=== PATIENT | male | born 1980 | race Hispanic/Latino ===

== ENCOUNTER 2018-01-02 08:31 | Observation (INO) | payer BC ==
[2018-01-02] MEDS ORDERED: NA CHLORIDE 0.9% 1,000 ML ONE ×2 (09:02→12:36)
[2018-01-02] MEDS ORDERED: MORPHINE 4 MG/ML SYR ONE (09:02)
[2018-01-02] MEDS ORDERED: ONDANSETRON 4 MG/2 ML VIAL ONE ×3 (09:02→15:13)
[2018-01-02] MEDS ORDERED: FAMOTIDINE 20 MG/2 ML VIAL IV ONE (09:03)
[2018-01-02 09:11] LABS: Absolute Lymphocytes (CBC) 2.3 K/uL (0.7-4.9); Absolute Monocytes 0.4 K/uL (0.1-1.3); Absolute Neutrophil 4.1 K/uL (1.8-8.0); Basophils % 4.1 % (0-1.3); Eosinophils % 1.6 % (0-4.4); Lymphocytes % 32.1 % (15.3-44.8); MCH 29.2 pg (27.0-35.0); MCV 85.3 fL (80-100); MPV 8.9 fL (7.6-11.3); RBC Red Blood Cell Count 5.51 M/uL (4.33-5.43)
[2018-01-02 09:19] LABS: Bicarbonate 28 mEq/L (21-31); Glucose Level 120 mg/dL (65-120); Lipase 24 U/L (22-51); Potassium 3.5 mEq/L (3.6-5.0); Sodium Level 136 mEq/L (135-145)
[2018-01-02 09:26] LABS: ALT/SGPT 34 IU/L (10-60); AST/SGOT 23 IU/L (10-42); Albumin 4.4 g/dL (3.2-5.5); Alkaline Phosphatase 84 IU/L (42-121); Amylase Level 89 U/L (28-100); BUN Blood Urea Nitrogen 18 mg/dL (6-20); Bilirubin Direct 0.1 mg/dL (0-0.2); Bilirubin Total 0.6 mg/dL (0.3-1.2); Protein, Total 7.9 g/dL (6.0-8.3)
--- NOTE | 2018-01-02 09:34 | RAD REPORT ---
EXAM DESCRIPTION: CT - Stone Protocol - 01/02/2018 9:13 am CLINICAL HISTORY: Flank pain. COMPARISON: None. TECHNIQUE: Axial images were obtained without oral or IV contrast. Lack of contrast limits solid org an and vascular assessment. The [id number] spans the entirety of the system partially obscuring uppermost abdomen and lung bases. Coronal reformatted images were obtained and reviewed. All CT scans are performed using dose optimization technique as appropriate and may include automated exposure control or mA/KV adjustment according to patient size. FINDINGS: The lower lung rainey are clear. Imaged portions of the liver and spleen show no suspicious findings on non-contrast imaging. The panc reas and adrenal glands are normal. No pathologic lymphadenopathy in the abdomen or pelvis. 6 mm stone is present proximal left ureter (1350 HU) resulting in mild left hydronephrosis. Additiona l small caliceal stones are present bilaterally. Largest mid-pole right kidney measuring 6 mm. No bowel obstruction, free air, free fluid or abscess. Appendectomy. No significant bony abnormality. IMPRESSION: 6 mm stone proximal left ureter (1350 HU) resulting in mild left hydronephrosis. Additional bilateral nephrolithiasis is present, largest mid-pole right kidney measuring 6 mm.
[2018-01-02] MEDS ORDERED: Magnesium Sulfate 2gm IVPB 2 G/50 ML BAG IV ONE (09:49)
[2018-01-02] MEDS ORDERED: CEFTRIAXONE/SWI 1gm 1 GM/10 ML SYR ONE (09:49)
--- NOTE | 2018-01-02 09:53 | ER ---
Nurse's Notes [facility] Name: Morgan Castillo Age: 37 yrs Sex: Male : 1980 Arrival Date: 01/02/2018 Time: 08:34 Bed 19 Private MD: Anjali Borja H Diagnosis: Calculus of kidney with calculus of ureter-Left Presentation: 01/02 08:40 Presenting complaint: Patient states: has hx of kidney stones, c/o left side flank pain iw since 0630 this morning, 04/06. Transition of care: patient was not received from another setting of care. Onset of symptoms was January 02, 2018. Initial Sepsis Screen: Does the patient meet any 2 criteria? No. Patient's initial sepsis screen is negative. Does the patient have a suspected source of infection? No. Patient's initial sepsis screen is negative. Care prior to arrival: None. 08:40 Method Of Arrival: Ambulatory iw 08:40 Acuity: JASON 3 iw Historical: - Allergies: 08:41 NKA; iw - Home Meds: 08:41 None [Active]; iw - PMHx: 08:41 None; iw - PSHx: 08:41 Kidney stents; Cholecystectomy; Appendectomy; Knee surgery; iw - Immunization history:: Last tetanus immunization: unknown, Flu vaccine is up to date. - Social history:: Smoking status: Patient/guardian denies using tobacco. Screenin:40 Abuse screen: Denies threats or abuse. Nutritional screening: No deficits noted. ae1 Tuberculosis screening: No symptoms or risk factors identified. Fall Risk None identified. Assessment: 08:20 General: Appears uncomfortable, Behavior is cooperative, anxious, restless. Pain: ae1 Complains of pain in right mid back. Neuro: Level of Consciousness is awake, alert, obeys commands, Oriented to person, place, time, situation. Cardiovascular: Heart tones S1 S2 present Patient's skin is warm and dry. Respiratory: Airway is patent Respiratory effort is even, unlabored, Respiratory pattern is regular, symmetrical, Breath sounds are clear bilaterally. GI: Bowel sounds present X 4 quads. Abd is soft and non tender. GI: Reports nausea, vomiting. : Reports urgency, Hx of kidney stones. EENT: No signs and/or symptoms were reported regarding the EENT system. Derm: Skin is pale. Musculoskeletal: No signs and/or symptoms reported regarding the musculoskeletal system. 09:38 Reassessment: Dr. Cannon at bedside discussing plan of care. ae1 10:12 Reassessment: Patient appears more relaxed, reports pain is still present but decreased.ae1 10:52 Reassessment: Patient appears in no apparent distress at this time. Patient and/or ae1 family updated on plan of care and expected duration. Pain level reassessed. Patient states feeling better. 11:49 Reassessment: Report called to ZA Carvajal, registration notified that report has been ae1 called. Vital Signs: 08:41 BP 127 / 88; Pulse 58; Resp 18 S; Temp 98.2; Pulse Ox 100% on R/A; Weight 81.65 kg; iw Height 5 ft. 7 in. (170.18 cm); Pain 8/10; 10:13 BP 129 / 80; Pulse 63; Resp 20; Pulse Ox 99% on R/A; ae1 10:52 BP 126 / 83; Pulse 61; Resp 17; Pulse Ox 100% on R/A; ae1 08:41 Body Mass Index 28.19 (81.65 kg, 170.18 cm) iw ED Course: 08:34 Patient arrived in ED. mr 08:34 Anjali Borja DO is Private Physician. mr 08:38 [facility]. cp 08:38 Lux Michel MD is Attending Physician. cp 08:40 Triage completed. iw 08:41 Arm band placed on. iw 08:46 Nazario Rodriguez, ZA is Primary Nurse. ae1 08:53 Inserted saline lock: 20 gauge in right antecubital area, using aseptic technique. ae1 Blood collected. 09:10 CT completed. Patient tolerated procedure well. Patient moved to CT via wheelchair. kw1 Patient moved back from CT. 09:13 CT Stone Protocol In Process Unspecified. EDMS 09:41 Bed in low position. Call light in reach. Side rails up X 1. Adult w/ patient. Pulse ox ae1 on. NIBP on. Warm blanket given. 09:52 Cisco Cannon MD is Hospitalizing Provider. cp 10:31 X-ray completed. Patient tolerated procedure well. Patient moved back from radiology. sw 11:54 No provider procedures requiring assistance completed. Patient admitted, IV remains in ae1 place. Administered Medications: 09:01 Drug: NS 0.9% 1000 ml Route: IV; Rate: 1 bolus; Site: right antecubital; ae1 10:09 Follow up: IV Status: Completed infusion ae1 09:01 Drug: Zofran 4 mg Route: IVP; Site: right antecubital; ae1 11:55 Follow up: Response: Nausea is decreased ae1 09:03 Drug: morphine 4 mg Route: IVP; Site: right antecubital; ae1 11:55 Follow up: Response: Pain is decreased ae1 09:09 Drug: Pepcid 20 mg Route: IVP; Site: right antecubital; ae1 11:56 Follow up: Response: No adverse reaction ae1 09:51 Drug: Rocephin - (cefTRIAXone) 1 grams Route: IVPB; Infused Over: 30 mins; Site: right ae1 antecubital; 11:40 Follow up: IV Status: Completed infusion ae1 09:55 Drug: Magnesium Sulfate 2 grams Route: IVPB; Infused Over: 2 hrs; Site: right ae1 antecubital; 11:55 Follow up: IV Status: Completed infusion ae1 Outcome: 09:53 Decision to Hospitalize by Provider. cp 11:54 Admitted to Med/surg accompanied by tech, family with patient, via wheelchair, room ae1 215, with chart, Report called to Wei, receiving nurse. 11:54 Condition: stable 11:54 Instructed on the need for admit, Demonstrated understanding of instructions. 11:56 Patient left the ED. ae1 Signatures: Dispatcher [employer] Shy Westbrook Irene, RN RN iw Warren, Shannon sw Page, Corey, PA PA Nazario Clark RN RN ae1 Evelyn Stanton1
--- NOTE | 2018-01-02 09:53 | EDPHYS ---
Physician Documentation [facility] Name: Morgan Castillo Age: 37 yrs Sex: Male : 1980 Arrival Date: 01/02/2018 Time: 08:34 Bed 19 Private MD: Anjali Borja H ED Physician Lux Michel HPI: 01/02 09:00 This 37 yrs old Male presents to ER via Ambulatory with complaints of Possible cp Kidney Stone. 09:00 The patient complains of pain in the left mid back. The pain radiates to the abdomen cp and left groin. 09:00 Onset: The symptoms/episode began/occurred this morning, at 06:30. Associated signs and cp symptoms: Pertinent positives: nausea, vomiting, Pertinent negatives: diarrhea, fever, pain radiating to the lower extremities. Severity of pain: in the emergency department the pain is unchanged despite home interventions. The patient has experienced similar episodes in the past, today's symptoms are similar, to when the patient was apparently diagnosed with kidney stone. Historical: - Allergies: 08:41 NKA; iw - Home Meds: 08:41 None [Active]; iw - PMHx: 08:41 None; iw - PSHx: 08:41 Kidney stents; Cholecystectomy; Appendectomy; Knee surgery; iw - Immunization history:: Last tetanus immunization: unknown, Flu vaccine is up to date. - Social history:: Smoking status: Patient/guardian denies using tobacco. ROS: 09:05 Constitutional: Positive for poor PO intake, Negative for body aches, chills, fever. cp 09:05 Eyes: Negative for injury, pain, redness, and discharge. cp 09:05 ENT: Negative for drainage from ear(s), ear pain, sore throat, difficulty swallowing, difficulty handling secretions. 09:05 Neck: Negative for pain with movement, pain at rest, stiffness, tenderness. 09:05 Cardiovascular: Negative for chest pain, edema, palpitations. 09:05 Respiratory: Negative for cough, shortness of breath, wheezing. 09:05 Abdomen/GI: Positive for abdominal pain, nausea and vomiting, Negative for diarrhea, constipation, anorexia, black/tarry stool, rectal bleeding. 09:05 Back: Positive for flank pain, on the left, Negative for injury or acute deformity. 09:05 : Positive for testicular pain 09:05 Skin: Negative for cellulitis, rash. 09:05 Neuro: Negative for altered mental status, headache, numbness, weakness. 09:05 All other systems are negative. Exam: 09:10 Constitutional: The patient appears alert, awake, non-diaphoretic, non-toxic, well cp developed, well nourished, in obvious pain, uncomfortable. 09:10 Head/Face: Normocephalic, atraumatic. cp 09:10 Eyes: Periorbital structures: appear normal, Pupils: equal, round, and reactive to light and accomodation, Extraocular movements: intact throughout, Conjunctiva: normal, no exudate, no injection, Sclera: no appreciated abnormality, Lids and lashes: appear normal, bilaterally. 09:10 ENT: External ear(s): are unremarkable, Nose: is normal, Mouth: Lips: moist, Oral mucosa: pink and intact, moist, Posterior pharynx: is normal, airway is patent, no erythema, no exudate. 09:10 Neck: ROM/movement: is normal, is supple, without pain, no range of motions limitations, no nuchal rigidity. 09:10 Chest/axilla: Inspection: normal, Palpation: is normal, no crepitus, no tenderness. 09:10 Cardiovascular: Rate: normal, Rhythm: regular. 09:10 Respiratory: the patient does not display signs of respiratory distress, Respirations: normal, no use of accessory muscles, no retractions, no splinting, no tachypnea, labored breathing, is not present, Breath sounds: are clear throughout, no decreased breath sounds, no stridor, no wheezing. 09:10 Abdomen/GI: Inspection: abdomen appears normal, Bowel sounds: active, all quadrants, Palpation: soft, in all quadrants, moderate abdominal tenderness, in the anterior aspect of left lateral abdomen, posterior aspect of left lateral abdomen, left upper quadrant and left lower quadrant, rebound tenderness, is not appreciated, involuntary guarding, is not appreciated. 09:10 Back: CVA tenderness, is noted on the left. 09:10 Skin: cellulitis, is not appreciated, no rash present. 09:10 Neuro: Orientation: to person, place \T\ time. Mentation: lucid, able to follow commands, Cerebellar function: is grossly normal, Motor: moves all fours, strength is normal, Sensation: no obvious gross deficits, Gait: is steady. Vital Signs: 08:41 BP 127 / 88; Pulse 58; Resp 18 S; Temp 98.2; Pulse Ox 100% on R/A; Weight 81.65 kg; iw Height 5 ft. 7 in. (170.18 cm); Pain 8/10; 10:13 BP 129 / 80; Pulse 63; Resp 20; Pulse Ox 99% on R/A; ae1 10:52 BP 126 / 83; Pulse 61; Resp 17; Pulse Ox 100% on R/A; ae1 08:41 Body Mass Index 28.19 (81.65 kg, 170.18 cm) iw MDM: 08:38 Patient medically screened. cp 09:00 Differential diagnosis: nephrolithiasis, pyelonephritis, UTI, testicular torsion, cp diverticulitis, pancreatitis, ruptured AAA, dissecting AAA. 09:39 Physician consultation: Cisco Cannon MD was contacted at 09:39, regarding patient's cp condition, and will see patient in ED, shortly. 09:40 Data reviewed: vital signs, nurses notes, lab test result(s), radiologic studies, CT cp scan. 09:40 Response to treatment: the patient's symptoms have markedly improved after treatment. cp 01/02 08:54 Order name: Amylase, Serum; Complete Time: 09:37 cp 01/02 08:54 Order name: Basic Metabolic Panel; Complete Time: 09:37 cp 01/02 08:54 Order name: CBC with Diff; Complete Time: 09:37 cp 01/02 08:54 Order name: Creatinine for Radiology; Complete Time: 09:37 cp 01/02 08:54 Order name: Hepatic Function; Complete Time: 09:37 cp 01/02 08:54 Order name: Lipase; Complete Time: 09:37 cp 01/02 08:54 Order name: Urine Microscopic Only cp 01/02 09:01 Order name: CT Stone Protocol; Complete Time: 09:37 cp 01/02 10:08 Order name: XRAY KUB iw 01/02 10:10 Order name: Basic Metabolic Panel EDMS 01/02 10:10 Order name: Basic Metabolic Panel EDMS 01/02 10:10 Order name: CBC with Automated Diff EDMS 01/02 10:10 Order name: CBC with Automated Diff EDMS 01/02 10:18 Order name: Urine Dipstick--Ancillary (enter results) ag 01/02 08:54 Order name: IV Saline Lock; Complete Time: 09:03 cp 01/02 08:54 Order name: Labs collected and sent; Complete Time: 09:03 cp 01/02 08:54 Order name: Urine Dipstick-Ancillary (obtain specimen); Complete Time: 10:09 cp 01/02 10:10 Order name: NPO EDMS 01/02 11:17 Order name: RAD EDMS Administered Medications: 09:01 Drug: NS 0.9% 1000 ml Route: IV; Rate: 1 bolus; Site: right antecubital; ae1 10:09 Follow up: IV Status: Completed infusion ae1 09:01 Drug: Zofran 4 mg Route: IVP; Site: right antecubital; ae1 11:55 Follow up: Response: Nausea is decreased ae1 09:03 Drug: morphine 4 mg Route: IVP; Site: right antecubital; ae1 11:55 Follow up: Response: Pain is decreased ae1 09:09 Drug: Pepcid 20 mg Route: IVP; Site: right antecubital; ae1 11:56 Follow up: Response: No adverse reaction ae1 09:51 Drug: Rocephin - (cefTRIAXone) 1 grams Route: IVPB; Infused Over: 30 mins; Site: right ae1 antecubital; 11:40 Follow up: IV Status: Completed infusion ae1 09:55 Drug: Magnesium Sulfate 2 grams Route: IVPB; Infused Over: 2 hrs; Site: right ae1 antecubital; 11:55 Follow up: IV Status: Completed infusion ae1 Disposition: 01/03 07:00 Co-signature as Attending Physician, Lux Michel MD I agree with the assessment and steve plan of care. Disposition: 01/02/18 09:53 Hospitalization ordered by Cisco Cannon for Observation. Preliminary diagnosis is Calculus of kidney with calculus of ureter - Left. - Bed requested for Telemetry/MedSurg (observation). - Status is Observation. ae1 - Condition is Stable. - Problem is new. - Symptoms have improved. UTI on Admission? No Signatures: Dispatcher [employer] Lux Marshall MD MD cha Williams, Irene, RN RN iw Gallardo, Ana ag Page, Corey, PA PA cp Elliott, Andrea, RN RN ae1 Corrections: (The following items were deleted from the chart) 01/02 11:37 09:53 Hospitalization Ordered by Cisco Cannon MD for Observation. Preliminary ag diagnosis is Calculus of kidney with calculus of ureter - Left. Bed requested for Telemetry/MedSurg (observation). Status is Observation. Condition is Stable. Problem is new. Symptoms have improved. UTI on Admission? No. cp 11:56 11:37 01/02/2018 09:53 Hospitalization Ordered by Cisco Cannon MD for Observation. ae1 Preliminary diagnosis is Calculus of kidney with calculus of ureter - Left. Bed requested for Telemetry/MedSurg (observation). Status is Observation. Condition is Stable. Problem is new. Symptoms have improved. UTI on Admission? No. ag
[2018-01-02] MEDS ORDERED: ACETAMINOPHEN 500 MG TAB PO PRN (10:07)
[2018-01-02] MEDS ORDERED: Morphine 2 MG/2 ML SYR IV PRN (10:07)
[2018-01-02] MEDS ORDERED: ONDANSETRON 4 MG/2 ML VIAL IV PRN (10:07)
[2018-01-02 10:37] LABS: Urine Blood 3+ (NEG); Urine Glucose NEGATIVE (NEG); Urine Protein 1+ (NEG)
[2018-01-02 10:41] LABS: Urine Bacteria <20 /HPF (NONE SEEN); Urine Culture Reflex Order NOT NEEDED; Urine Mucus 1+ /HPF (NONE SEEN); Urine RBC >50 /HPF (NONE SEEN)
[2018-01-02] MEDS ORDERED: NA CHLORIDE 0.9% 1,000 ML IV SCH (11:00)
--- NOTE | 2018-01-02 11:16 | RAD REPORT ---
EXAM DESCRIPTION: RAD - Abdomen 1 View (KUB) - 01/02/2018 10:33 am CLINICAL HISTORY: Pain COMPARISON: 01/02/2018 CT FINDINGS: The bowel gas pattern is non-obstructive. No evidence of free air or pneumatosis. [place] c alcification is seen at the level of L2-3 along the course of left ureter compatible with a stone in the left ureter. Additional bilateral nephrolithiasis is present. No significant bony findings. Cholecystectomy clips seen. IMPRESSION: [place] stone is present in the left ureter along the left L2-3 level. Bilateral nephrolithiasis.
[2018-01-02] MEDS ORDERED: PROPOFOL 200 MG/20 ML VIAL IV ONE (12:03)
[2018-01-02] MEDS ORDERED: FENTANYL CITR 100 MCG/2 ML ONE (12:04)
[2018-01-02] MEDS ORDERED: MIDAZOLAM HCL 2 MG/2 ML INJ ONE ×2 (12:04→12:49)
[2018-01-02] MEDS ORDERED: LIDOCAINE 1% MPF 5 ML VIAL ONE (12:31)
[2018-01-02] MEDS ORDERED: MORPHINE 10 MG/ML VIAL ONE (13:03)
[2018-01-02] MEDS ORDERED: KETOROLAC 30 MG/ML INJ ONE (13:03)
[2018-01-02] MEDS ORDERED: PROMETHAZINE 25 MG/ML VIAL ONE (14:14)
--- NOTE | 2018-01-02 14:29 | CON ---
History Of Present Illness: This is a pleasant 37-year-old gentleman who was in good state of health . He has a history of stones since he was in high school he said. About 11 years ago, he had bilate ral ureteroscopy done for bilateral stones. He was doing well for the last 11 years and developed le ft flank pain this morning at 6:30 a.m., associated with nausea and vomiting. He came to the emergen cy room, where a CAT scan was done showing a 6-mm stone in the left ureter by L2 area measuring 1350 Hounsfield units. He has some small additional bilateral stones. The largest stone was 6-mm in the right mid pole of the kidney. Consenting for left ESWL, possible stent. Knows all the risks and hillary efits and wishes to proceed. We also discussed about doing a 24-hour urine collection to determine t he reason for stones. He says, he drinks lots of water, but I have encouraged him to hydrate at leas t half his body in ounces per day. Past Medical History: No hypertension, no diabetes. No heart disease. Past Surgical History: Appendectomy, cholecystectomy, and bilateral ureteroscopy. Medications: None. Allergies: NONE. Social History: No tobacco smoking. No IV drug use. No alcohol use. Family History: Noncontributory. Review of Systems: A 10-point review of system otherwise. Physical Examination: General: The patient was afebrile, stable. HEENT: Atraumatic, normocephalic. He has mild left flank tenderness. Abdomen: Soft. Both testicles are descended. No lesions. No signs of any tumor. Extremities: Normal range of motion. MARCUS: Deferred. Laboratory Data: Sodium 136, potassium slightly low at 3.5, chloride 103 carbon dioxide 28, glucose 120, calcium 9.8, BUN 18, creatinine 0.9, and GFR greater than 90. CBC white count normal at 7.2, H and H are 16 and 48, and platelet 222. LFTs normal. UA pending. KUB pending. Assessment: A 6 mm stone at the left of L2, Hounsfield unit 1350. Plan: For left ESWL. If the stone breaks up well, then we will place a stent distally. If difficul t to break, we may have to place a stent. The patient knows all multiple risks and benefits and wish es to proceed. ELIJAH/RODRIGO Voice ID: [id number] Report ID: [id number]
== END 2018-01-02 16:17 | disposition home or self-care (01) ==
LOC: ER 08:31 → 2ND 09:53 → OR 10:06 → INP 14:11
PROVIDERS: ADMIT Urology; ATTEND Urology
PROC: 0TF7XZZ Fragmentation in Left Ureter, External Approach (ICD-10-PCS; principal; 2018-01-02 13:45)
DX: N20.1 Calculus of ureter (principal); Z87.442 Personal history of urinary calculi
CPT/HCPCS: 36415; 50590; 74018; 74176; 76377; 80048; 80076; 81003; 81015; 82150; 83690; 85025; 96361; 96365; 96368; 96375; 99285; G0378; J0696; J2250; J2405; J2550; J3010; J3475; J7030

== ENCOUNTER 2018-01-07 07:53 | Emergency (ER) | payer BC ==
[2018-01-07] MEDS ORDERED: ONDANSETRON 4 MG/2 ML VIAL ONE (08:17)
[2018-01-07] MEDS ORDERED: KETOROLAC 30 MG/ML INJ ONE (08:17)
[2018-01-07 08:26] LABS: Absolute Lymphocytes (CBC) 2.7 K/uL (0.7-4.9); Absolute Monocytes 0.4 K/uL (0.1-1.3); Basophils % 0.6 % (0-1.3); Eosinophils % 2.1 % (0-4.4); Hematocrit 46.5 % (39.6-49.0); Lymphocytes % 32.2 % (15.3-44.8); MCH 29.6 pg (27.0-35.0); MCV 85.5 fL (80-100); MPV 8.6 fL (7.6-11.3); Monocytes % 5.2 % (3.3-12.3); RBC Red Blood Cell Count 5.44 M/uL (4.33-5.43)
[2018-01-07 08:34] LABS: Potassium 3.9 mEq/L (3.6-5.0)
[2018-01-07 09:07] LABS: Urine Bacteria <20 /HPF (NONE SEEN); Urine Culture Reflex Order REFLEXED; Urine Mucus HEAVY /HPF (NONE SEEN); Urine RBC TNTC /HPF (NONE SEEN)
--- NOTE | 2018-01-07 09:14 | ER ---
Nurse's Notes [facility] Name: Morgan Castillo Age: 37 yrs Sex: Male : 1980 Arrival Date: 01/07/2018 Time: 07:55 Bed 18 Private MD: Anjali Borja H Diagnosis: Acute Ureteral Colic Presentation: 01/07 08:01 Presenting complaint: Patient states: was here last week for kidney stones, had a hj procedure last Monday to break up the stone and able to pass it; this morning around 4 am, i started having pain on my L flank area that moves to my groin area; denies fever and chills;. Transition of care: patient was not received from another setting of care. Onset of symptoms was January 07, 2018. Initial Sepsis Screen: Does the patient meet any 2 criteria? No. Patient's initial sepsis screen is negative. Does the patient have a suspected source of infection? No. Patient's initial sepsis screen is negative. Care prior to arrival: None. 08:01 Method Of Arrival: Ambulatory 08:01 Acuity: JASON 3 hj Triage Assessment: 08:05 General: Appears in no apparent distress. uncomfortable, Behavior is calm, cooperative, hj appropriate for age. Pain: Complains of pain in L flank. EENT: No signs and/or symptoms were reported regarding the EENT system. Neuro: Level of Consciousness is awake, alert, obeys commands, Oriented to person, place, time, situation, Appropriate for age. Cardiovascular: Capillary refill < 3 seconds Patient's skin is warm and dry. Respiratory: Airway is patent Respiratory effort is even, unlabored, Respiratory pattern is regular, symmetrical. GI: Reports lower abdominal pain, upper abdominal pain. : Reports pain flank(s), scrotum. Derm: No signs and/or symptoms reported regarding the dermatologic system. Musculoskeletal: No signs and/or symptoms reported regarding the musculoskeletal system. Historical: - Allergies: 08:04 NKA; hj - Home Meds: 08:04 None [Active]; hj - PMHx: 08:04 Kidney stones; hj - PSHx: 08:04 Kidney stents; Cholecystectomy; Appendectomy; Knee surgery; hj - Immunization history:: Adult Immunizations up to date. - Social history:: Smoking status: Patient/guardian denies using tobacco, Patient/guardian denies using alcohol. - Family history:: not pertinent. - Hospitalizations: : The patient was recently seen at [facility], for similar complaints. Screenin:06 Abuse screen: Denies threats or abuse. Denies injuries from another. Nutritional hj screening: No deficits noted. Tuberculosis screening: No symptoms or risk factors identified. Fall Risk None identified. Assessment: 08:06 GI: Bowel sounds present X 4 quads. Abd is soft and non tender. hj 09:10 Reassessment: Patient and/or family updated on plan of care and expected duration. Pain hj level reassessed. Patient is alert, oriented x 3, equal unlabored respirations, skin warm/dry/pink. pain 0/10;. Vital Signs: 08:06 BP 142 / 100; Pulse 69; Resp 18; Temp 97.7(TE); Pulse Ox 100% on R/A; Weight 83.91 kg; hj Height 5 ft. 7 in. (170.18 cm); Pain 7/10; 09:11 BP 122 / 90; Pulse 65; Resp 18; Pulse Ox 100% on R/A; hj 08:06 Body Mass Index 28.97 (83.91 kg, 170.18 cm) hj ED Course: 07:55 Patient arrived in ED. mr 07:55 Anjali Borja DO is Private Physician. mr 08:01 Cory Foster, ZA is Primary Nurse. hj 08:01 James Farfan MD is Attending Physician. wa 08:04 Triage completed. hj 08:06 Arm band placed on right wrist. hj 08:06 Patient has correct armband on for positive identification. Placed in gown. Bed in low hj position. Call light in reach. Side rails up X 1. 08:20 Initial lab(s) drawn, by me, sent to lab. Urine collected:. Inserted saline lock: 22 hj gauge in right antecubital area, using aseptic technique. Blood collected. 09:12 Cisco Cannon MD is Referral Physician. wa 09:21 IV discontinued, intact, bleeding controlled, No redness/swelling at site. Pressure hj dressing applied. 09:21 No provider procedures requiring assistance completed. hj Administered Medications: 08:10 Drug: Zofran 4 mg Route: IVP; Site: right antecubital; hj 08:57 Follow up: Response: No adverse reaction; Nausea is decreased 08:10 Drug: TORadol 30 mg Route: IVP; Site: right antecubital; 08:57 Follow up: Response: No adverse reaction; Pain is decreased Outcome: 09:13 Discharge ordered by . michele 09:21 Discharged to home ambulatory, with family. 09:21 Condition: stable 09:21 Discharge instructions given to patient, family, Instructed on discharge instructions, follow up and referral plans. medication usage, Demonstrated understanding of instructions, follow-up care, medications. 09:22 Patient left the ED. Signatures: Shy Gunn Henry, RN RN James Farfan MD MD wa
--- NOTE | 2018-01-07 09:14 | EDPHYS ---
Physician Documentation [facility] Name: Morgan Castillo Age: 37 yrs Sex: Male : 1980 Arrival Date: 01/07/2018 Time: 07:55 Bed 18 Private MD: Anjali Borja H ED Physician James Farfan HPI: 01/07 08:11 This 37 yrs old Male presents to ER via Ambulatory with complaints of Possible wa Kidney Stone. 08:11 The patient complains of pain in the left flank. The pain radiates to the L groin. wa Onset: The symptoms/episode began/occurred 4 hour(s) ago, and became worse 2 hour(s) ago. Modifying factors: The symptoms are alleviated by nothing. the symptoms are aggravated by nothing. Associated signs and symptoms: Pertinent positives: nausea, Pertinent negatives: diarrhea, dizziness, dysuria, fever, headache, vomiting. Severity of pain: At its worst the pain was severe in the emergency department the pain is unchanged. The patient has experienced similar episodes in the past, h/o kidney stones. recent admit. no procedures required. passed by self. The patient has been recently seen by a physician: in patient admit. Historical: - Allergies: 08:04 NKA; hj - Home Meds: 08:04 None [Active]; hj - PMHx: 08:04 Kidney stones; hj - PSHx: 08:04 Kidney stents; Cholecystectomy; Appendectomy; Knee surgery; hj - Immunization history:: Adult Immunizations up to date. - Social history:: Smoking status: Patient/guardian denies using tobacco, Patient/guardian denies using alcohol. - Family history:: not pertinent. - Hospitalizations: : The patient was recently seen at [facility], for similar complaints. ROS: 08:13 Constitutional: Negative for fever, chills, and weight loss, Eyes: Negative for injury, wa pain, redness, and discharge, ENT: Negative for injury, pain, and discharge, Neck: Negative for injury, pain, and swelling, Cardiovascular: Negative for chest pain, palpitations, and edema, Respiratory: Negative for shortness of breath, cough, wheezing, and pleuritic chest pain, Back: Negative for injury and pain, : Negative for injury, bleeding, discharge, and swelling, MS/Extremity: Negative for injury and deformity, Skin: Negative for injury, rash, and discoloration, Neuro: Negative for headache, weakness, numbness, tingling, and seizure. 08:13 Abdomen/GI: Positive for nausea, L flank pain, Negative for vomiting, diarrhea, rectal bleeding. Exam: 08:14 Constitutional: This is a well developed, well nourished patient who is awake, alert, wa and in no acute distress. Head/Face: Normocephalic, atraumatic. Eyes: Pupils equal round and reactive to light, extra-ocular motions intact. Lids and lashes normal. Conjunctiva and sclera are non-icteric and not injected. Cornea within normal limits. Periorbital areas with no swelling, redness, or edema. ENT: Nares patent. No nasal discharge, no septal abnormalities noted. Tympanic membranes are normal and external auditory canals are clear. Oropharynx with no redness, swelling, or masses, exudates, or evidence of obstruction, uvula midline. Mucous membranes moist. Neck: Trachea midline, no thyromegaly or masses palpated, and no cervical lymphadenopathy. Supple, full range of motion without nuchal rigidity, or vertebral point tenderness. No Meningismus. Chest/axilla: Normal chest wall appearance and motion. Nontender with no deformity. No lesions are appreciated. Cardiovascular: Regular rate and rhythm with a normal S1 and S2. No gallops, murmurs, or rubs. Normal PMI, no JVD. No pulse deficits. Respiratory: Lungs have equal breath sounds bilaterally, clear to auscultation and percussion. No rales, rhonchi or wheezes noted. No increased work of breathing, no retractions or nasal flaring. Back: No spinal tenderness. No costovertebral tenderness. Full range of motion. Male : Normal genitalia with no discharge or lesions. Skin: Warm, dry with normal turgor. Normal color with no rashes, no lesions, and no evidence of cellulitis. MS/ Extremity: Pulses equal, no cyanosis. Neurovascular intact. Full, normal range of motion. Neuro: Awake and alert, GCS 15, oriented to person, place, time, and situation. Cranial nerves II-XII grossly intact. Motor strength 5/5 in all extremities. Sensory grossly intact. Cerebellar exam normal. Normal gait. 08:14 Abdomen/GI: Inspection: abdomen appears normal, Bowel sounds: normal, in all quadrants, Palpation: abdomen is soft and non-tender, in all quadrants. Vital Signs: 08:06 BP 142 / 100; Pulse 69; Resp 18; Temp 97.7(TE); Pulse Ox 100% on R/A; Weight 83.91 kg; hj Height 5 ft. 7 in. (170.18 cm); Pain 7/10; 09:11 BP 122 / 90; Pulse 65; Resp 18; Pulse Ox 100% on R/A; hj 08:06 Body Mass Index 28.97 (83.91 kg, 170.18 cm) MDM: 08:01 Patient medically screened. nm 08:14 Differential diagnosis: suspect renal colic. will not CT at this time as symptoms wa consistent with h/o with recent radiation. 09:04 Data reviewed: vital signs, nurses notes, lab test result(s). Test interpretation: by nm ED physician or midlevel provider: labs noted for nml BMP. UA noted for 3+ blood. Response to treatment: the patient's symptoms have resolved after treatment, pain completely resolved. already taking zofran, flomax and pain meds a home. will d/c with close f/u. 01/07 08:10 Order name: Basic Metabolic Panel; Complete Time: 08:35 nm 01/07 08:10 Order name: CBC with Diff; Complete Time: 08:51 nm 01/07 08:51 Interpretation: Abnormal. nm 01/07 08:10 Order name: Urine Microscopic Only nm 01/07 08:58 Order name: Urine Dipstick--Ancillary (enter results) 01/07 09:08 Order name: Urine Culture [facility] 01/07 08:10 Order name: IV Saline Lock; Complete Time: 08:13 nm 01/07 08:10 Order name: Labs collected and sent; Complete Time: 08:14 nm 01/07 08:10 Order name: Urine Dipstick-Ancillary (obtain specimen); Complete Time: 08:57 nm Administered Medications: 08:10 Drug: Zofran 4 mg Route: IVP; Site: right antecubital; 08:57 Follow up: Response: No adverse reaction; Nausea is decreased 08:10 Drug: TORadol 30 mg Route: IVP; Site: right antecubital; hj 08:57 Follow up: Response: No adverse reaction; Pain is decreased hj Disposition: 01/07/18 09:13 Discharged to Home. Impression: Acute Ureteral Colic. - Condition is Stable. - Discharge Instructions: Kidney Stones, [id number]. - Medication Reconciliation Form, Thank You Letter, Antibiotic Education, Prescription Opioid Use form. - Follow up: Cisco Cannon MD; When: 2 - 3 days; Reason: Recheck today's complaints. - Problem is an acute exacerbation. - Symptoms have improved. - Notes: conitnue to take your medicines as previously prescribed. strain your urine to confimr passage. see your urlogist within 1 week if pain persists. return to ER immediately for worsening pain and or worrisome concerns Signatures: Dispatcher [employer] EDCory Green RN RN James Farfan MD MD wa Corrections: (The following items were deleted from the chart) 09:22 09:13 01/07/2018 09:13 Discharged to Home. Impression: Acute Ureteral Colic. Condition hj is Stable. Forms are Medication Reconciliation Form, Thank You Letter, Antibiotic Education, Prescription Opioid Use. Follow up: Cisco Cannon; When: 2 - 3 days; Reason: Recheck today's complaints. Problem is an acute exacerbation. Symptoms have improved. michele
[2018-01-07 09:55] LABS: Urine Blood 3+ (NEG); Urine Glucose NEGATIVE (NEG); Urine Protein 1+ (NEG)
== END 2018-01-07 09:22 | disposition home or self-care (01) ==
LOC: ER 07:53
DX: N23 Unspecified renal colic (principal); Z87.442 Personal history of urinary calculi
CPT/HCPCS: 36415; 80048; 81003; 81015; 85025; 87086; 87088; 96374; 96375; 99283; J2405

== ENCOUNTER 2019-06-06 05:39 | Emergency (ER) | payer BC, OTHER ==
[2019-06-06] MEDS ORDERED: ONDANSETRON 4 MG/2 ML VIAL ONE (06:08)
[2019-06-06] MEDS ORDERED: MORPHINE 4 MG/ML SYR ONE (06:08)
[2019-06-06] MEDS ORDERED: NA CHLORIDE 0.9% 1,000 ML ONE ×2 (06:12→08:30)
[2019-06-06 06:18] LABS: Absolute Lymphocytes (CBC) 3.3 K/uL (0.7-4.9); Basophils % 0.8 % (0-1.3); Hematocrit 43.9 % (39.6-49.0); Lymphocytes % 43.1 % (15.3-44.8); MPV 8.7 fL (7.6-11.3); RBC Red Blood Cell Count 5.16 M/uL (4.33-5.43)
[2019-06-06 08:04] LABS: ALT/SGPT 32 U/L (12-78); AST/SGOT 15 U/L (15-37); Albumin 3.4 g/dL (3.4-5.0); Alkaline Phosphatase 88 U/L (45-117); BUN Blood Urea Nitrogen 16 mg/dL (7-18); Bicarbonate 27 mmol/L (21-32); Bilirubin Direct < 0.1 mg/dL (0-0.2); Bilirubin Total 0.3 mg/dL (0.2-1.0); Glucose Level 114 mg/dL (74-106); Lipase 88 U/L (73-393); Potassium 3.9 mmol/L (3.5-5.1); Sodium Level 143 mmol/L (136-145)
--- NOTE | 2019-06-06 08:16 | RAD REPORT ---
EXAM DESCRIPTION: CT - Stone Protocol - 06/06/2019 6:49 am CLINICAL HISTORY: Flank pain. FLANK PAIN COMPARISON: Stone Protocol dated 01/02/2018 TECHNIQUE: Axial images were obtained without oral or IV contrast. Lack of contrast limits solid org an and vascular assessment. The [id number] spans the entirety of the system partially obscuring uppermost abdomen and lung bases. Coronal reformatted images were obtained and reviewed. All CT scans are performed using dose optimization technique as appropriate and may include automated exposure control or mA/KV adjustment according to patient size. FINDINGS: The lower lung rainey are clear. Imaged portions of the liver and spleen show no suspicious findings on non-contrast imaging.Cholecyst ectomy clips. The pancreas and adrenal glands are normal. No pathologic lymphadenopathy in the abdome n or pelvis. 8 mm stone (1260) HU is present in the proximal right ureter resulting moderate right hydronephrosis. Additional caliceal stones are present bilaterally; the largest in the superior calyx left kidney me asuring 4 mm. No bowel obstruction, free air, free fluid or abscess. Appendectomy. Small fat containing umbilical h ernia. No significant bony abnormality. IMPRESSION: 8 mm stone proximal right ureter resulting in moderate right hydronephrosis. Punctate additional bilateral nephrolithiasis.
[2019-06-06] MEDS ORDERED: KETOROLAC 30 MG/ML INJ ONE (08:30)
--- NOTE | 2019-06-06 09:22 | EDPHYS ---
Physician Documentation [facility] Name: Morgan Castillo Age: 39 yrs Sex: Male : 1980 Arrival Date: 06/06/2019 Time: 05:40 Bed X-Ray Private MD: ED Physician Tk Lei HPI: 06/06 06:22 This 39 yrs old Male presents to ER via Ambulatory with complaints of Lower R [facility] side Back Pain. 06:22 The patient presents with abdominal pain. Onset: The symptoms/episode began/occurred jm acutely, at 01:00. The symptoms radiate to abdomen. Associated signs and symptoms: Pertinent positives: nausea and vomiting, Pertinent negatives: fever. The symptoms are described as achy, sharp. The patient has experienced similar episodes in the past, a few times. Denies need to stent with previous kidney stones. Historical: - Allergies: 05:54 NKA; ak1 - Home Meds: 05:54 None [Active]; ak1 - PMHx: 05:54 Kidney stones; ak1 - PSHx: 05:54 Kidney stents; Cholecystectomy; Knee surgery; Appendectomy; ak1 - Immunization history:: Adult Immunizations unknown. - Social history:: Smoking status: Patient/guardian denies using tobacco. - Ebola Screening: : No symptoms or risks identified at this time. ROS: 06:22 Constitutional: Negative for fever, chills, and weight loss, Cardiovascular: Negative jmm for chest pain, palpitations, and edema, Respiratory: Negative for shortness of breath, cough, wheezing, and pleuritic chest pain. 06:22 Abdomen/GI: Positive for abdominal pain, nausea and vomiting. 06:22 Back: Positive for flank pain. 06:22 All other systems are negative. Exam: 06:22 Head/Face: atraumatic. Eyes: EOMI, no conjunctival erythema appreciated ENT: Moist jmm Mucus Membranes Neck: Trachea midline, Supple Chest/axilla: Normal chest wall appearance and motion. Cardiovascular: Regular rate and rhythm. No edema appreciated Respiratory: Normal respirations, no respiratory distress appreciated 06:22 Constitutional: The patient appears alert, awake, uncomfortable. 06:22 Abdomen/GI: Inspection: abdomen appears normal, Bowel sounds: normal, Palpation: soft, mild abdominal tenderness, in the right lower quadrant. 06:22 Back: CVA tenderness, that is moderate, is noted on the right. 06:22 Musculoskeletal/extremity: ROM: intact in all extremities. 06:22 Skin: Appearance: normal except for affected area. 06:22 Neuro: Orientation: is normal, Mentation: is normal, Memory: is normal. 06:22 Psych: Behavior/mood is pleasant, cooperative. Vital Signs: 05:52 BP 141 / 94; Pulse 68; Resp 18; Temp 98.; Pulse Ox 97% on R/A; Weight 81.65 kg (R); ak1 Height 5 ft. 7 in. (170.18 cm) (R); Pain 7/10; 06:15 BP 129 / 95; Pulse 64; Resp 18; Pulse Ox 98% on R/A; ak1 07:44 BP 113 / 80; Pulse 61; Resp 15; Pulse Ox 100% on R/A; hb 05:52 Body Mass Index 28.19 (81.65 kg, 170.18 cm) ak1 MDM: 06:11 Patient medically screened. [facility] 09:20 Data reviewed: vital signs, nurses notes. Counseling: I had a detailed discussion with viri the patient and/or guardian regarding: the historical points, exam findings, and any diagnostic results supporting the discharge/admit diagnosis, lab results, radiology results, the need for outpatient follow up, to return to the emergency department if symptoms worsen or persist or if there are any questions or concerns that arise at home. ED course: I discussed the patient with Dr. Cannon whom will see the patient in clinic. Patient is otherwise given strict return precautions. Patient understood and agrees with the plan of care. . 06/06 06:00 Order name: Basic Metabolic Panel; Complete Time: 08:15 [facility] 06/06 06:00 Order name: CBC with Diff; Complete Time: 06:35 [facility] 06/06 06:00 Order name: Creatinine for Radiology; Complete Time: 06:35 [facility] 06/06 06:00 Order name: Hepatic Function; Complete Time: 08:15 [facility] 06/06 06:00 Order name: Lipase; Complete Time: 08:15 [facility] 06/06 06:00 Order name: Urine Microscopic Only [facility] 06/06 06:00 Order name: Urine Culture [facility] 06/06 06:07 Order name: CT Stone Protocol; Complete Time: 08:20 [facility] 06/06 08:30 Order name: Abdomen 1 View (KUB) XRAY [facility] 06/06 08:55 Order name: Urine Dipstick--Ancillary (enter results) 06/06 06:00 Order name: IV Saline Lock; Complete Time: 06:00 [facility] 06/06 06:00 Order name: Labs collected and sent; Complete Time: 06:00 [facility] 06/06 06:00 Order name: Urine Dipstick-Ancillary (obtain specimen); Complete Time: 08:54 ak Administered Medications: 06:12 Drug: Zofran 4 mg Route: IVP; Site: right forearm; ak1 07:05 Follow up: Response: No adverse reaction aa5 06:12 Drug: morphine 4 mg Route: IVP; Site: right forearm; ak1 07:05 Follow up: Response: No adverse reaction aa5 06:15 Drug: NS 0.9% 1000 ml Route: IV; Rate: 1 bolus; Site: right forearm; jb4 07:20 Follow up: IV Status: Completed infusion; IV Intake: 1000ml aa5 08:37 Drug: NS 0.9% 1000 ml Route: IV; Rate: 1 bolus; Site: right forearm; aa5 08:37 Drug: Ketorolac 30 mg Route: IVP; Site: right forearm; aa5 08:42 Follow up: Response: No adverse reaction aa5 Disposition: 06/06/19 09:21 Discharged to Home. Impression: Calculus of kidney and ureter. - Condition is Stable. - Discharge Instructions: Kidney Stones. - Prescriptions for Zofran ODT 4 mg Oral tablet,disintegrating - place 1 tablet by TRANSLINGUAL route every 4-6 hours; 20 tablet. Tylenol- Codeine #3 300-30 mg Oral Tablet - take 2 tablet by ORAL route every 6 hours As needed; 30 tablet. Flomax 0.4 mg Oral Capsule, Sust. Release 24 hr - take 1 capsule by ORAL route once daily 1/2 hour following the same meal each day; 30 capsule. - Medication Reconciliation Form, Thank You Letter, Antibiotic Education, Prescription Opioid Use form. - Follow up: Cisco Cannon MD; When: Upon discharge from the Emergency Department; Reason: Recheck today's complaints, Continuance of care, Re-evaluation by your physician. Signatures: Dispatcher [employer] EDMS Stephen Renae PA PA jmm Pozo, Lisa, RN RN aa5 Ashli Alvarado RN RN ak1 Lorena Spivey, RN RN Anthony Agudelo RN RN jb4 Corrections: (The following items were deleted from the chart) 09:31 09:21 06/06/2019 09:21 Discharged to Home. Impression: Calculus of kidney and ureter. hb Condition is Stable. Forms are Medication Reconciliation Form, Thank You Letter, Antibiotic Education, Prescription Opioid Use. Follow up: Cisco Cannon; When: Upon discharge from the Emergency Department; Reason: Recheck today's complaints, Continuance of care, Re-evaluation by your physician. viri
--- NOTE | 2019-06-06 09:22 | ER ---
Nurse's Notes [facility] Name: Morgan Castillo Age: 39 yrs Sex: Male : 1980 Arrival Date: 06/06/2019 Time: 05:40 Bed X-Ray Private MD: Diagnosis: Calculus of kidney and ureter Presentation: 06/06 05:52 Presenting complaint: Patient states: right flank pain since 99. pt with hx kidney ak1 stones last year and saw Dr. Cannon. Transition of care: patient was not received from another setting of care. Onset of symptoms was June 06, 2019. Risk Assessment: Do you want to hurt yourself or someone else? Patient reports no desire to harm self or others. Initial Sepsis Screen: Does the patient meet any 2 criteria? No. Patient's initial sepsis screen is negative. Does the patient have a suspected source of infection? No. Patient's initial sepsis screen is negative. Care prior to arrival: None. 05:52 Method Of Arrival: Ambulatory ak1 05:52 Acuity: JASON 3 ak1 Triage Assessment: 05:54 General: Appears in no apparent distress. uncomfortable, Behavior is calm, cooperative. ak1 Pain: Complains of pain in right mid back and right low back. EENT: No signs and/or symptoms were reported regarding the EENT system. Neuro: Level of Consciousness is awake, alert, obeys commands, Oriented to person, place, time, situation, Moves all extremities. Full function. Cardiovascular: No deficits noted. Respiratory: Airway is patent Respiratory effort is even, unlabored. GI: No signs and/or symptoms were reported involving the gastrointestinal system. : Reports inability to void, pain in right flank(s), since 99. Derm: No signs and/or symptoms reported regarding the dermatologic system. Musculoskeletal: No signs and/or symptoms reported regarding the musculoskeletal system. Historical: - Allergies: 05:54 NKA; ak1 - Home Meds: 05:54 None [Active]; ak1 - PMHx: 05:54 Kidney stones; ak1 - PSHx: 05:54 Kidney stents; Cholecystectomy; Knee surgery; Appendectomy; ak1 - Immunization history:: Adult Immunizations unknown. - Social history:: Smoking status: Patient/guardian denies using tobacco. - Ebola Screening: : No symptoms or risks identified at this time. Screenin:55 Abuse screen: Denies threats or abuse. Denies injuries from another. Nutritional ak1 screening: No deficits noted. Tuberculosis screening: No symptoms or risk factors identified. Fall Risk None identified. Assessment: 06:15 General: Appears uncomfortable, Behavior is cooperative. Pain: Complains of pain in ak1 right flank. Neuro: Level of Consciousness is awake, alert, obeys commands, Oriented to person, place, time, situation, Moves all extremities. Full function. Cardiovascular: No deficits noted. Respiratory: No deficits noted. GI: Reports nausea. : Reports inability to void, pain in right flank(s). EENT: No signs and/or symptoms were reported regarding the EENT system. Derm: No signs and/or symptoms reported regarding the dermatologic system. Musculoskeletal: No signs and/or symptoms reported regarding the musculoskeletal system. 06:17 Reassessment: pt with urinal and cup at bedside to provide a sample. ak1 06:56 Reassessment: pt returned from CT informed of wait time for CT results. ak1 07:05 Reassessment: Patient is alert, oriented x 3, equal unlabored respirations, skin aa5 warm/dry/pink. Pt lying down in bed. Pt reminded of need for urine specimen. Pt states "I can't go right now". NS bolus almost complete. . 07:30 Reassessment: Labs recollected by USHA Maurer and sent to lab . aa5 07:45 Reassessment: Patient appears in no apparent distress at this time. Patient and/or hb family updated on plan of care and expected duration. Pain level reassessed. Patient is alert, oriented x 3, equal unlabored respirations, skin warm/dry/pink. 08:45 Reassessment: Patient appears in no apparent distress at this time. Patient and/or hb family updated on plan of care and expected duration. Pain level reassessed. Patient is alert, oriented x 3, equal unlabored respirations, skin warm/dry/pink. 08:45 Reassessment: Urine specimen collected. . aa5 Vital Signs: 05:52 BP 141 / 94; Pulse 68; Resp 18; Temp 98.; Pulse Ox 97% on R/A; Weight 81.65 kg (R); ak1 Height 5 ft. 7 in. (170.18 cm) (R); Pain 7/10; 06:15 BP 129 / 95; Pulse 64; Resp 18; Pulse Ox 98% on R/A; ak1 07:44 BP 113 / 80; Pulse 61; Resp 15; Pulse Ox 100% on R/A; hb 05:52 Body Mass Index 28.19 (81.65 kg, 170.18 cm) ak1 ED Course: 05:40 Patient arrived in ED. ds1 05:50 Inserted saline lock: 20 gauge in right forearm, using aseptic technique. Blood jb4 collected. 05:52 Ashli Alvarado, RN is Primary Nurse. ak1 05:52 Arm band placed on Patient placed in an exam room, on a stretcher, on pulse oximetry, ak1 Patient notified of wait time. 05:53 Triage completed. ak1 05:55 Patient has correct armband on for positive identification. Bed in low position. Call ak1 light in reach. Side rails up X 1. Pulse ox on. NIBP on. 06:04 Stephen Renae PA is PHCP. jmm 06:04 Tk Lei MD is Attending Physician. jmm 06:15 Initial lab(s) drawn, by ED staff, sent to lab. ak1 06:39 CT completed. Patient tolerated procedure well. Patient moved to CT via stretcher. Patient moved back from CT. 06:49 CT Stone Protocol In Process Unspecified. EDMS 07:39 Lab(s) recollected, by me, sent to lab. dh3 08:56 Abdomen 1 View (KUB) XRAY In Process Unspecified. EDMS 09:21 Cisco Cannon MD is Referral Physician. jmm 09:31 No provider procedures requiring assistance completed. IV discontinued, intact, hb bleeding controlled, No redness/swelling at site. Pressure dressing applied. Administered Medications: 06:12 Drug: Zofran 4 mg Route: IVP; Site: right forearm; ak1 07:05 Follow up: Response: No adverse reaction aa5 06:12 Drug: morphine 4 mg Route: IVP; Site: right forearm; ak1 07:05 Follow up: Response: No adverse reaction aa5 06:15 Drug: NS 0.9% 1000 ml Route: IV; Rate: 1 bolus; Site: right forearm; jb4 07:20 Follow up: IV Status: Completed infusion; IV Intake: 1000ml aa5 08:37 Drug: NS 0.9% 1000 ml Route: IV; Rate: 1 bolus; Site: right forearm; aa5 08:37 Drug: Ketorolac 30 mg Route: IVP; Site: right forearm; aa5 08:42 Follow up: Response: No adverse reaction aa5 Intake: 07:20 IV: 1000ml; Total: 1000ml. aa5 Outcome: 09:21 Discharge ordered by MD. meredith 09:31 Discharged to home ambulatory. 09:31 Condition: stable 09:31 Discharge instructions given to patient, Instructed on discharge instructions, follow up and referral plans. medication usage, Demonstrated understanding of instructions, follow-up care, medications, Prescriptions given X 3. 09:31 Patient left the ED. Signatures: Dispatcher [employer] EDMS Stephen Renae PA PA jmm Hagler, Ervin eh Sanford, Demi ds1 Lisa Pozo RN RN aa5 Ashli Alvarado RN RN ak1 Lorena Spivey RN RN Anthony Agudelo, RN RN jb4 [place] 3
[2019-06-06 09:33] LABS: Urine Bacteria <20 /HPF (NONE SEEN); Urine Culture Reflex Order NOT NEEDED; Urine RBC 20-50 /HPF (NONE SEEN)
--- NOTE | 2019-06-06 09:37 | RAD REPORT ---
EXAM DESCRIPTION: RAD - Abdomen 1 View (KUB) - 06/06/2019 9:01 am CLINICAL HISTORY: right flank pain Pain COMPARISON: Abdomen 1 View (KUB) dated 01/08/2018; Abdomen 1 View (KUB) dated 01/02/2018 FINDINGS: The bowel gas pattern is non-obstructive. No evidence of free air or pneumatosis. Stone is noted in the proximal right ureter projecting just superior to the right L3 transverse process.
[2019-06-06 09:51] VITALS: TEMP 98
[2019-06-06 09:54] VITALS: BP 113/80; O2SAT 100
[2019-06-06 14:10] LABS: Urine Blood 3+ (NEG); Urine Glucose NEGATIVE (NEG); Urine Protein NEGATIVE (NEG); Urine Specific Gravity 1.025 (1.005-1.030); Urine pH 5.5 (5.0-7.0)
== END 2019-06-06 09:31 | disposition home or self-care (01) ==
LOC: ER 05:39
DX: N20.2 Calculus of kidney with calculus of ureter (principal); Z87.442 Personal history of urinary calculi
CPT/HCPCS: 96361; 87088; 85025; 80048; 36415; 80076; 83690; 76377; 74176; 74018; 96375; 96374; 99284; J7030 ×2; J2405; 81003; 81015; 87086

== ENCOUNTER 2023-02-18 06:52 | Emergency (ER) | payer OTHER ==
--- OUTSIDE RECORDS SUMMARY | 2023-02-18 06:55 | XMS REPORT | Continuity of Care Document ---
:1980 Author Organization [facility] t Address [address] [facility] [address] [place] [id number] Care Team Providers Name Role Phone SOFÍA LEZAMA Primary Care Physician Unavailable RADIOLOGY Attending Clinician Unavailable Radiology Attending Clinician Unavailable JUNO BUTT Attending Clinician Unavailable DAVEY MENDEZ Attending Clinician Unavailable Lab, Adc Fam Pob I Attending Clinician Unavailable Fatou Torrez Attending Clinician FATOU SALGADO Attending Clinician Unavailable Berna Quinn PA-C Attending Clinician BERNA QUINN Attending Clinician Unavailable Doctor Unassigned, [place] Attending Clinician Unavailable MICHAEL ROWE Admitting Clinician Unavailable Payers Payer Name Policy Type Policy Number Effective Date Expiration Date Tavo MERCADO II [id number] 2019 00:00:00 Problems This patient has no known problems. Allergies, Adverse Reactions, Alerts Allergy Allergy Status Severity Reaction(s) Onset Inactive Treating Comm ents Source Name Type Date Date Clinician NO KNOWN Drug Active [facility] Social History Social Habit Start Date Stop Date Quantity Comments Source Exposure to Yes [facility] SARS-CoV-2 (event) Medica l Branch Sex Assigned At [birth year] [facility] 00:00:00 00:00:00 Medical Branch Smoking Status Start Date Stop Date Source Unknown if ever smoked [facility] Medications Ordered Filled Start Stop Current Ordering Indication Dosage Frequency Signature Comments Components Source Medication Medication Date Date Medication? Clinician (SIG) Name Name HYDROCODONE 2005- Yes 1-2 Tabs Un nahun -ACETAMINOP 0-17 Oral ity of HEN 5-325 00:00: Q6HPRN [place] MG ORAL TAB 00 Medical Branch OXYBUTYNIN 2006- Yes 1 Tab Oral U nivers CHLORIDE 5 0-17 TID prn ity of MG ORAL TAB 00:00: bladder [place] 00 spasm Medical Branch TRIMETHOPRI 2006- Yes 1 Tab PO Un nahun M-SULFAMETH 0-17 BID ity of OXAZOLE 00:00: [place] 160-800 MG 00 Medical ORAL TAB Branch HYDROCODONE 2006- Yes 1-2 Tabs Un nahun -ACETAMINOP 0-17 Oral ity of HEN 5-325 00:00: Q6HPRN [place] MG ORAL TAB 00 Medical Branch OXYBUTYNIN 2006- Yes 1 Tab Oral U nivers CHLORIDE 5 0-17 TID prn ity of MG ORAL TAB 00:00: bladder [place] 00 spasm Medical Branch TRIMETHOPRI 2005- Yes 1 Tab PO Un nahun M-SULFAMETH 0-17 BID ity of OXAZOLE 00:00: [place] 160-800 MG 00 Medical ORAL TAB Branch HYDROCODONE 2006- Yes 1-2 Tabs Un nahun -ACETAMINOP 0-17 Oral ity of HEN 5-325 00:00: Q6HPRN [place] MG ORAL TAB 00 Medical Branch OXYBUTYNIN 2006- Yes 1 Tab Oral U nivers CHLORIDE 5 0-17 TID prn ity of MG ORAL TAB 00:00: bladder [place] 00 spasm Medical Branch TRIMETHOPRI 2005- Yes 1 Tab PO Un nahun M-SULFAMETH 0-17 BID ity of OXAZOLE 00:00: [place] 160-800 MG 00 Medical ORAL TAB Branch HYDROCODONE 2006- Yes 1-2 Tabs Un nahun -ACETAMINOP 0-17 Oral ity of HEN 5-325 00:00: Q6HPRN [place] MG ORAL TAB 00 Medical Branch OXYBUTYNIN 2006- Yes 1 Tab Oral U nivers CHLORIDE 5 0-17 TID prn ity of MG ORAL TAB 00:00: bladder [place] 00 spasm Medical Branch TRIMETHOPRI 2005- Yes 1 Tab PO Un nahun M-SULFAMETH 0-17 BID ity of OXAZOLE 00:00: [place] 160-800 MG 00 Medical ORAL TAB Branch Immunizations Ordered Filled Immunization Date Status Comments Sourc e Immunization Name Name SARS-COV-2 COVID-19 2020-12-02 Completed Unive rsity of MODERNA VACCINE 00:00:00 [place] [facility] ical Branch SARS-COV-2 COVID-19 2020-11-04 Completed Unive rsity of MODERNA VACCINE 00:00:00 [place] [facility] ical Branch Procedures Procedure Date / Time Performing Clinician Source Performed US ABDOMEN COMPLETE 2022-01-19 22:42:45 Requisition, Paper Unive rsity of [facility] NO SHOW OR MISSED 2022-01-19 21:39:37 Doctor Unassigned, [facility] APPOINTMENT POLICY [place] [facility] h ACKNOWLEDGEMENT [facility] PATIENT FINANCIAL 2022-01-19 21:39:21 Doctor Unassigned, Un [facility] POLICY [place] [facility] NOTICE OF PRIVACY 2022-01-19 21:39:08 Doctor Unassigned, [facility] PRACTICES [place] [facility] CONSENT/REFUSAL FOR 2022-01-19 21:38:58 Doctor Unassigned, [facility] DIAGNOSIS AND TREATMENT [place] [facility] ASSIGNMENT OF BENEFITS 2022-01-19 21:38:47 Doctor Unassigned, Un [facility] [place] [facility] Encounters Start End Encounter Admission Attending Care Care Encounter Source Date/Time Date/Time Type Type Clinicians Facility Department ID 2022-01-19 2022-01-19 Outpatient R RADIOLOGY [facility] [id number] Univers 16:44:17 23:59:00 ity of [facility] 2022-01-19 2022-01-19 Hospital Radiology [facility] [id number] Univers 16:44:17 23:59:00 Encounter [place] [id number] ity [facility] [id number] [facility] [id number] [facility] 806 Branch 2020-12-02 2020-12-02 Outpatient Tramaine BUTT [facility] [id number] Univers 16:10:00 16:10:00 JUNO ity of [facility] 2020-11-04 2020-11-04 Outpatient R DAQUAN [facility] [id number] Univers 16:40:00 16:40:00 JUNO itterra [facility] [place] [facility] 2020-10-05 2020-10-05 Outpatient R ANDREA [facility] [id number] Univers 17:20:00 18:27:00 DAVEY itterra [facility] [place] [facility] 2020-09-29 2020-09-29 Laboratory Lab, [facility] [id number] Univers 17:19:16 17:39:16 Only Fatou Salgado [facility] [id number] ity of [place] [id number] [place] [phone] [place] [address] 2020-09-29 2020-09-29 Outpatient R DAMIAN [facility] [id number] Univers 17:20:00 17:20:00 FATOU [facility] 2020-07-17 2020-07-17 Laboratory Lab, [facility] [id number] Univers 19:32:45 19:52:45 Only Berna Quinn [facility] [id number] ity of [place] [id number] [place] [phone] [place] [address] 2020-07-17 2020-07-17 Outpatient R TANGELA [facility] [id number] Univers 19:40:00 19:40:00 BERNA terra [facility] [place] [facility] 2020-07-17 2020-07-17 Letter Doctor BERNA [id number] Univers 00:00:00 00:00:00 (Out) Unassigned, [place] [id number] ity of [place] [facility] [id number] [place] [phone] [place] [address] Branch Results This patient has no known results.
--- NOTE | 2023-02-18 09:29 | ER ---
Nurse's Notes [facility] Name: Morgan Castillo Age: 42 yrs Sex: Male : 1980 Arrival Date: 02/18/2023 Time: 06:52 Bed 12 Private MD: Diagnosis: Unspecified hemorrhoids-INFLAMED AND THROMBOSED Presentation: 02/18 07:30 Chief complaint: Patient states: has hemorrhoids that are really painful , got bad last iw night. Coronavirus screen: At this time, the client does not indicate any symptoms associated with coronavirus-19. Ebola Screen: Patient negative for fever greater than or equal to 101.5 degrees Fahrenheit, and additional compatible Ebola Virus Disease symptoms Patient denies exposure to infectious person. Patient denies travel to an Ebola-affected area in the 21 days before illness onset. No symptoms or risks identified at this time. Initial Sepsis Screen: Does the patient meet any 2 criteria? No. Patient's initial sepsis screen is negative. Does the patient have a suspected source of infection? No. Patient's initial sepsis screen is negative. Risk Assessment: Do you want to hurt yourself or someone else? Patient reports no desire to harm self or others. Onset of symptoms was February 18, 2023. 07:30 Method Of Arrival: Ambulatory iw 07:30 Acuity: JASON 3 iw Historical: - Allergies: 07:31 NKA; iw - Home Meds: 07:31 None [Active]; iw - PMHx: 07:31 Kidney stones; iw Screenin:20 [facility] ED Fall Risk Assessment (Adult) History of falling in the last 3 months, iw including since admission. Abuse screen: Denies threats or abuse. Denies injuries from another. Nutritional screening: No deficits noted. Tuberculosis screening: No symptoms or risk factors identified. Assessment: 08:20 General: Appears in no apparent distress. Behavior is calm, cooperative. Pain: iw Complains of pain in rectum. Neuro: Level of Consciousness is awake, alert, obeys commands, Oriented to person, place, time, situation, Moves all extremities. Full function. Cardiovascular: Patient's skin is warm and dry. Respiratory: Respiratory effort is even, unlabored, Respiratory pattern is regular. GI: Reports hemorrhoids. Vital Signs: 07:30 BP 138 / 95; Pulse 62; Resp 16; Temp 98.1; Pulse Ox 97% on R/A; Weight 84.82 kg; Height iw 5 ft. 7 in. ; Pain 04/06; 07:30 Body Mass Index 29.29 (84.82 kg, 170.18 cm) iw 07:30 Pain Scale: Adult iw ED Course: 07:13 Patient arrived in ED. [id number] 07:31 Triage completed. iw 07:31 Arm band placed on. iw 07:32 Lux Michel MD is Attending Physician. steve 08:10 Radha Ashley, RN is Primary Nurse. iw 09:28 Marco Poon MD is Referral Physician. steve Administered Medications: 10:12 Drug: Docusate PO 200 mg Route: PO; iw 10:12 Drug: [place] PO 10 mg-325 mg 1 tabs Route: PO; iw 10:13 Drug: Ciprofloxacin PO 500 mg Route: PO; iw 10:13 Not Given (Patient Refused): Anusol-HC MO Suppository 25 mg 25 mg MO once iw Medication: 08:21 VIS not applicable for this client. iw Outcome: 09:28 Discharge ordered by . steve 10:13 Patient left the ED. iw Signatures: Lux Michel MD MD cha Williams, Irene, RN RN iw Delmis Justina [email or web address]
--- NOTE | 2023-02-18 09:29 | EDPHYS ---
Physician Documentation [facility] Name: Morgan Castillo Age: 42 yrs Sex: Male : 1980 Arrival Date: 02/18/2023 Time: 06:52 Bed 12 Private MD: ED Physician Lux Michel HPI: 02/18 09:14 This 42 yrs old Male presents to ER via Ambulatory with complaints of steve Hemorrhoids. 09:14 The patient presents to the emergency department with pain in the rectal area, that is steve moderate, that is severe. Onset: The symptoms/episode began/occurred 2 day(s) ago. Context: the patient has a known history of hemorrhoids. Modifying factors: The symptoms are alleviated by cool compress, remaining still, The symptoms are aggravated by movement, sitting position. Associate signs and symptoms: The patient has no apparent associated signs or symptoms. Historical: - Allergies: 07:31 NKA; iw - Home Meds: 07:31 None [Active]; iw - PMHx: 07:31 Kidney stones; iw ROS: 09:16 Constitutional: Negative for fever, chills, and weight loss, Eyes: Negative for injury, steve pain, redness, and discharge, ENT: Negative for injury, pain, and discharge, Neck: Negative for injury, pain, and swelling, Cardiovascular: Negative for chest pain, palpitations, and edema, Respiratory: Negative for shortness of breath, cough, wheezing, and pleuritic chest pain, Back: Negative for injury and pain, : Negative for injury, bleeding, discharge, and swelling, MS/Extremity: Negative for injury and deformity, Skin: Negative for injury, rash, and discoloration, Neuro: Negative for headache, weakness, numbness, tingling, and seizure, Psych: Negative for depression, anxiety, suicide ideation, homicidal ideation, and hallucinations, Allergy/Immunology: Negative for hives, rash, and allergies, Endocrine: Negative for neck swelling, polydipsia, polyuria, polyphagia, and marked weight changes. 09:16 Abdomen/GI: Positive for rectal pain, of the . Exam: 09:16 Constitutional: This is a well developed, well nourished patient who is awake, alert, steve and in no acute distress. Head/Face: Normocephalic, atraumatic. Eyes: Pupils equal round and reactive to light, extra-ocular motions intact. Lids and lashes normal. Conjunctiva and sclera are non-icteric and not injected. Cornea within normal limits. Periorbital areas with no swelling, redness, or edema. ENT: Nares patent. No nasal discharge, no septal abnormalities noted. Tympanic membranes are normal and external auditory canals are clear. Oropharynx with no redness, swelling, or masses, exudates, or evidence of obstruction, uvula midline. Mucous membranes moist. Neck: Trachea midline, no thyromegaly or masses palpated, and no cervical lymphadenopathy. Supple, full range of motion without nuchal rigidity, or vertebral point tenderness. No Meningismus. Chest/axilla: Normal chest wall appearance and motion. Nontender with no deformity. No lesions are appreciated. Cardiovascular: Regular rate and rhythm with a normal S1 and S2. No gallops, murmurs, or rubs. Normal PMI, no JVD. No pulse deficits. Respiratory: Lungs have equal breath sounds bilaterally, clear to auscultation and percussion. No rales, rhonchi or wheezes noted. No increased work of breathing, no retractions or nasal flaring. Back: No spinal tenderness. No costovertebral tenderness. Full range of motion. Male : Normal genitalia with no discharge or lesions. Skin: Warm, dry with normal turgor. Normal color with no rashes, no lesions, and no evidence of cellulitis. 09:16 Abdomen/GI: Inspection: abdomen appears normal, Bowel sounds: normal, Palpation: abdomen is soft and non-tender, Rectal exam: hemorrhoid(s), external, with inflammation, with pain, with thrombosis, Liver: no appreciated palpable abnormalities, Hernia: not appreciated. Vital Signs: 07:30 BP 138 / 95; Pulse 62; Resp 16; Temp 98.1; Pulse Ox 97% on R/A; Weight 84.82 kg; Height iw 5 ft. 7 in. ; Pain 8/10; 07:30 Body Mass Index 29.29 (84.82 kg, 170.18 cm) iw 07:30 Pain Scale: Adult iw MDM: 07:33 Patient medically screened. steve 09:19 Data reviewed: vital signs, nurses notes. Consideration of Admission/Observation steve Escalation of care including admission/observation considered. I considered the following discharge prescriptions or medication management in the emergency department Medications were administered in the Emergency Department. See MAR. Test considered but Not performed: Labs: NO LABS. Care significantly affected by the following chronic conditions: KIDNEY STONES. Administered Medications: 10:12 Drug: Docusate PO 200 mg Route: PO; iw 10:12 Drug: [place] PO 10 mg-325 mg 1 tabs Route: PO; iw 10:13 Drug: Ciprofloxacin PO 500 mg Route: PO; iw 10:13 Not Given (Patient Refused): Anusol-HC ID Suppository 25 mg 25 mg ID once iw Disposition Summary: 02/18/23 09:28 Discharge Ordered Location: Home steve Problem: new steve Symptoms: have improved steve Condition: Stable steve Diagnosis - Unspecified hemorrhoids - INFLAMED AND THROMBOSED steve Followup: steve - With: Private Physician - When: 2 - 3 days - Reason: Recheck today's complaints, Continuance of care, Re-evaluation by your physician Followup: steve - With: - When: 1 - 2 days - Reason: Recheck today's complaints, Continuance of care, Re-evaluation by your physician Discharge Instructions: - Discharge Summary Sheet steve - High-Fiber Eating Plan steve - Hemorrhoids steve - How to Take a Sitz Bath steve - Hemorrhoids, [id number] [facility] Forms: - Medication Reconciliation Form steve - Thank You Letter steve - Antibiotic Education steve - Prescription Opioid Use [facility] Prescriptions: - Proctofoam HC 1-1 % Rectal foam - apply 1 application by RECTAL route 2 to 3 times per day as needed for steve hemorrhoids; 14 application; Refills: 0, Product Selection Permitted - acetaminophen-codeine 300-30 mg Oral tablet - take 2 tablet by ORAL route 4 times per day; 2 tablet; Refills: 0, Product steve Selection Permitted - Colace 100 mg Oral Tablet - take 1 tablet by ORAL route every 12 hours; 14 tablet; Refills: 0, Product steve Selection Permitted - Cipro 500 mg Oral Tablet - take 1 tablet by ORAL route every 12 hours for 7 days; 14 tablet; Refills: 0, [facility] Product Selection Permitted - Anusol-HC 25 mg Rectal Suppository - insert 1 suppository by RECTAL route every 12 hours As needed; 14 suppository; steve Refills: 0, Product Selection Permitted Signatures: Lux Michel MD MD cha Williams, Irene, RN RN iw
[2023-02-18] MEDS ORDERED: CIPROFLOXACIN HCL 500 MG TAB ONE (10:11)
[2023-02-18] MEDS ORDERED: HYDROCODONE/APAP 10/325 TAB ONE (10:11)
[2023-02-18] MEDS ORDERED: DOCUSATE NA 100 MG CAP PO ONE (10:14)
[2023-02-18 10:21] VITALS: BP 138/95; TEMP 98.1; O2SAT 97
== END 2023-02-18 10:13 | disposition home or self-care (01) ==
LOC: ER 06:52
DX: K64.5 Perianal venous thrombosis (principal); Z87.442 Personal history of urinary calculi
CPT/HCPCS: 99282

== ENCOUNTER 2023-02-27 11:18 | Day surgery (SDC) | payer OTHER ==
[2023-02-24 11:33] LABS: Potassium 3.8 mEq/L (3.5-5.1)
--- NOTE | 2023-02-26 11:20 | EKG ---
Test Date: 2023-02-24 Test Time: 11:09:31 Stem Cutter: ELFEGO MEASUREMENT RESULTS: Intervals: Rate: 54 HI: 108 QRSD: 120 QT: 388 QTc: 367 [place]: P: 27 HI: 108 QRS: 116 T: 52 INTERPRETIVE STATEMENTS: Sinus bradycardia with sinus arrhythmia with short HI Left posterior fascicular block Nonspecific T wave abnormality Abnormal ECG Compared to ECG 06/06/2019 11:44:15 Short HI interval now present Left posterior fascicular block now present T-wave abnormality still present Electronically Signed On 02-26-23 11:17:37 CDT by Reuben Mcgrath
[2023-02-27] MEDS ORDERED: Ringers Lactate 1,000 ML IV ONE (11:40)
[2023-02-27] MEDS: CEFAZOLIN SODIUM 2 GM/VIAL ONE ×2 (12:04→13:35)
[2023-02-27] MEDS: BUPIVACAINE 0.25% PF 30 ML VIAL ONE ×2 (12:04→14:03)
[2023-02-27] MEDS ORDERED: LIDOCAINE 2% MPF 5 ML VIAL ONE ×2 (13:37→14:35)
[2023-02-27] MEDS ORDERED: propofoL 200 MG/20 ML VIAL IV ONE (13:37)
[2023-02-27] MEDS ORDERED: MIDAZOLAM HCL 2 MG/2 ML INJ ONE (13:37)
[2023-02-27] MEDS ORDERED: GLYCOPYRROLATE 0.2 MG/ML SYR ONE ×3 (13:37→14:30)
[2023-02-27] MEDS ORDERED: FENTANYL CITR 100 MCG/2 ML ONE (13:37)
[2023-02-27] MEDS ORDERED: ROCURONIUM 50 MG/5 ML VIAL IV ONE (13:38)
[2023-02-27] MEDS ORDERED: ONDANSETRON 4 MG/2 ML VIAL ONE (14:06)
[2023-02-27] MEDS ORDERED: NEOSTIGMINE 1 MG/ML -10 ML VIAL ONE (14:07)
[2023-02-27] MEDS ORDERED: dexAMETHasone 4 MG/ML VIAL ONE (14:07)
[2023-02-27] MEDS ORDERED: LIDOCAINE HCL/EPINEPHRINE 20 ML MDV ONE (14:11)
--- NOTE | 2023-02-27 14:21 | P.OP ---
Preoperative diagnosis: External Anal Hemorrhoids Postoperative diagnosis: External Anal Hemorrhoids Primary procedure: Exam under anesthesia Secondary procedure: Excision of Thrombosed External Anal Hemorrhoid Anesthesia: GETA + Local Estimated blood loss: <5cc Specimen: Hemorrhoid Findings: ~ 3cm x 2 cm thrombosed external hemorrhoid Complications: None Transferred to: Recovery Room Condition: Good
[2023-02-27] MEDS ORDERED: MEPERIDINE HCL 50 MG/ML ONE (14:41)
[2023-02-27 15:20] VITALS: TEMP 97.5
[2023-02-27 15:24] VITALS: BP 114/62; O2SAT 98
[2023-02-27] MEDS ORDERED: HYDROCODONE/APAP 7.5/325 MG TAB ONE (15:50)
--- NOTE | 2023-02-27 18:28 | OP ---
Date of Procedure: 02/27/2023 Surgeon: Marco Poon MD, Preoperative Diagnosis: External hemorrhoids. Postoperative Diagnosis: External hemorrhoids. Procedures Performed: 1.Exam under anesthesia. 2.Excision of thrombosed external hemorrhoid. Anesthesia: General endotracheal plus local with 0.25% Marcaine as well as 1% lidocaine with epineph rine. Estimated Blood Loss: Less than 5 cc. Specimen: Hemorrhoid. Findings: Approximately 3 cm x 2 cm thrombosed external hemorrhoid. Complications: None. Disposition: The patient was transferred to the recovery room in good condition. Procedure In Detail: After informed consent was obtained, the patient was brought to the operating r oom, prepped and draped in the usual sterile fashion after adequate anesthesia was achieved. The pat ient was placed in lithotomy position. I performed anoscopy at this point after lubricating the anal canal and found multiple small to medium internal anal hemorrhoids. There was a large obvious exter nal anal hemorrhoid with thrombosis evident on the left lateral pillar. I then made an incision over lying the skin, which was partially ischemic with a small thrombosis on the medial aspect and erosion . I used a 15 blade down to subcutaneous tissues. I then used blunt dissection and electrocautery t o dissect circumferentially around sparing the muscle to remove the hemorrhoid at this point. I scor ed the skin at this point using electrocautery and used the LigaSure device to remove the hemorrhoid intact and sent off for pathologic examination. I then irrigated the area copiously. Hemostasis was achieved with electrocautery. I then closed the defect using a running 3-0 chromic catgut suture. I then inspected the anal canal 1 last time and placed a Gelfoam into the anal canal to assist with t he hemostasis postoperatively. A sterile dressing including Xeroform was placed over the suture line and a sterile dressing was applied. The patient tolerated the procedure well without evidence of co mplication and transferred to PACU in good condition. All counts were correct at the end of the case . REBEKAH/LOPEZL Voice ID: [id number] Report ID: [id number]
== END 2023-02-27 16:14 | disposition home or self-care (01) ==
LOC: OR 11:18
PROVIDERS: ATTEND Surgery
PROC: 06BY0ZC Excision of Hemorrhoidal Plexus, Open Approach (ICD-10-PCS; principal; 2023-02-27 13:30)
DX: K64.5 Perianal venous thrombosis (principal)
CPT/HCPCS: 93005; 80048; 36415; 88304; 46999; J2704; J1100; J2710; J2001 ×2; J2250; J3010; J2175; J2405; J7120

== ENCOUNTER 2023-04-27 17:38 | Emergency (ER) | payer OTHER ==
--- OUTSIDE RECORDS SUMMARY | 2023-04-27 18:41 | XMS REPORT | Continuity of Care Document ---
:1980 Author Organization [facility] t Address [address] [facility] [address] [place] [id number] Care Team Providers Name Role Phone JAMES LOMBARDO Eloisa Primary Care Physician Unavailable PAUL BOONE Attending Clinician Unavailable SUSIE ALEXANDER Attending Clinician Unavailable KELLY BOONE Attending Clinician Unavailable Kelly Boone DO Attending Clinician Susie Alexander MD Attending Clinician Earnest Augustine ENP Attending Clinician Abner Lorenz MD Attending Clinician ABNER LORENZ Attending Clinician Unavailable AVI SOLORIO Attending Clinician Unavailable AVI SOLORIO Attending Clinician Unavailable Avi Solorio DO Attending Clinician RADIOLOGY Attending Clinician Unavailable Radiology Attending Clinician Unavailable JUNO BUTT Attending Clinician Unavailable DAVEY MENDEZ Attending Clinician Unavailable Lab, Adc Fam Pob I Attending Clinician Unavailable Everardo Torrez Attending Clinician EVERARDO SALGADO Attending Clinician Unavailable Berna Quinn PA-C Attending Clinician BERNA QUINN Attending Clinician Unavailable Doctor Unassigned, [place] Attending Clinician Unavailable PAUL BOONE Admitting Clinician Unavailable Abner Loernz MD Admitting Clinician MICHAEL ROWE Admitting Clinician Unavailable Payers Payer Name Policy Type Policy Number Effective Date Expiration Date Tavo MERCADO II [id number] 2019 00:00:00 Problems Condition Condition Condition Status Onset Resolution Last Treating Co mments Source Name Details Category Date Date Treatment Clinician Date Obesity Obesity Disease Active Univers (BMI (BMI 8-26 ity of 30-39.9) 30-39.9) 00:00: [address] 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 Social History Social Habit Start Date Stop Date Quantity Comments Source Exposure to Yes [facility]-CoV-2 (event) [facility] Gender identity Universit y [facility] Sexual [facility] Tobacco use and 2023-04-25 2023-04-25 Smokeless Universit y of exposure 00:00:00 00:00:00 tobacco non-user [facility] History of Social 2023-04-21 2023-04-21 Univers ity of function 00:00:00 00:00:00 [facility] Sex Ass[birth year] At [birth year] Universit y of 00:00:00 00:00:00 [facility] Smoking Status Start Date Stop Date Source Tobacco smoking consumption Univ [facility] Never smoked tobacco [facility] Medications Ordered Filled Start Stop Current Ordering Indication Dosage Frequency Signature Comments Components Source Medication Medication Date Date Medication? Clinician (SIG) Name Name tamsulosin 2022- Yes [id number] .4mg Take 1 Univers 0.4 mg 24 04-23 capsule by ity of [place] capsule 00:00[place] 04[place]59 [place] the Medical [facility] for 30 days. tamsulosin 2022- Yes [id number] .4mg Take 1 Univers 0.4 mg 24 04-23 capsule by ity of [place] capsule 00:00[place]59 [place] [place] [facility] for 30 days. tamsulosin 2022- Yes [id number] .4mg Take 1 Univers 0.4 mg 24 04-23 capsule by ity of hr capsule 00:00: 04:59 [place] [facility] for 30 days. sulfamethox 2022- Yes 1{tbl} 1 tablet, Univers azole-trime 04-2206 Oral, BID, i ty of thoprim 13:00: 12:59 22 [place] ([place] :00 First dose Medic al DS) 800-160 on Sat Branch mg per 04/22/23 at tablet 1 0800, Last tablet dose on Mon05/02/23 at 1999, MARY
Re ason for Anti-Infec tive: Documented Infection< br>Documen davina Infection Site: Urine
D uration of Therapy: Other (see Comments) sulfamethox 2022- No 1{tbl} 1 tablet, Univers azole-trime 04-22 Oral, BID, i ty of thoprim 13:00: 19:52 22 [place] ([place] 00 :42 First dose Medic al DS) 800-160 on Sat Branch mg per 04/22/23 at tablet 1 0800, Last tablet dose on Mon05/02/23 at 1999, MARY
Re ason for Anti-Infec tive: Documented Infection< br>Documen davina Infection Site: Urine
D uration of Therapy: Other (see Comments) morpHINE ( Yes 2mg 2 mg, Slow Univers mg/mL) 04-22 IV Push, ity of injection 2 09:16: Q4HPRN, [place] mg 25 Starting Medical on Sat Branch 04/22/23 at 0416, Until Discontinu ed, Routine, Pain (scale 7-10) morpHINE (2 2022- No 2mg 2 mg, Slow Univers mg/mL) 04-22 IV Push, ity of injection 2 09:16: 19:52 Q4HPRN, [place] mg 25 :42 Starting Medical on Sat Branch 04/22/23 at 0416, Until 04/22/23 at 1452, Routine, Pain (scale 7-10) HYDROcodone Yes 1{tbl} 1 tablet, Univers -acetaminop 04-22 Oral, ity of [place] (NORCO 09:16: Q6HPRN, [place] 5) 5-325 mg 12 Starting Medi ramón tablet 1 on Sat Branch tablet 04/22/23 at 0416, Until Discontinu ed, Routine, Pain (scale 4-6) HYDROcodone 2022- No 1{tbl} 1 tablet, Univers -acetaminop 04-22 Oral, ity of hen (NORCO 09:16: 19:52 Q6HPRN, [place] 5) 5-325 mg 12 :42 Starting Medi ramón tablet 1 on Sat Branch tablet 04/22/23 at 0416, Until 04/22/23 at 1452, Routine, Pain (scale 4-6) gabapentin Yes 300mg 300 mg, Uni vers (NEURONTIN) 04-22 Oral, TID, it y of capsule 300 01:00: First dose [place] mg 00 on Mon Medical 04/21/23 at [place] 1999, Until Discontinu ed, Routine gabapentin 2022- No 300mg 300 mg, Un nahun (NEURONTIN) 04-22 Oral, TID, i ty of capsule 300 01:00: 19:52 First dose [place] mg 00 :42 on Mon Medical 04/21/23 at [place] 1999, Until Discontinu ed, Routine gabapentin 2022- Yes [id number] 300mg Take 1 Univers 300 mg 04-22 capsule by ity of capsule 00:00: 04:59 mouth in [place] 00 :00 the Medical morning Branch and 1 capsule at noon and 1 capsule in the evening. Do all this for 30 days. oxyBUTYnin 2022- Yes [id number] 5mg Take 1 Univers chloride 5 04-22 tablet by ity of mg tablet 00:00: 04:59 mouth [place] 00 :00 every 8 Medical (eight) Branch hours as needed for Bladder spasms for up to 30 days. gabapentin 2022- Yes [id number] 300mg Take 1 Univers 300 mg 04-22 capsule by ity of capsule 00:00: 04:59 mouth in [place] 00 :00 the Medical morning Branch and 1 capsule at noon and 1 capsule in the evening. Do all this for 30 days. oxyBUTYnin 0 2022- Yes [id number] 5mg Take 1 Univers chloride 5 04-22 tablet by ity of mg tablet 00:00: 04:59 mouth [place] 00 :00 every 8 Medical (eight) Branch hours as needed for Bladder spasms for up to 30 days. gabapentin 2022- Yes [id number] 300mg Take 1 Univers 300 mg 04-22 capsule by ity of capsule 00:00: 04:59 mouth in [place] 00 :00 the Medical morning Branch and 1 capsule at noon and 1 capsule in the evening. Do all this for 30 days. oxyBUTYnin 2022- Yes [id number] 5mg Take 1 Univers chloride 5 04-22 tablet by ity of mg tablet 00:00: 04:59 mouth [place] 00 :00 every 8 Medical (eight) Branch hours as needed for Bladder spasms for up to 30 days. sulfamethox 2022-0 2022- Yes [id number] 1{tbl} Take 1 Univers azole-trime -23 05-06 tablet by it y of thoprim 00:00: 04:59 mouth in [place] 800-160 mg 00 :00 the Medical per tablet morning Branch and 1 tablet in the evening. Do all this for 10 days. sulfamethox 0 2022- Yes [id number] 1{tbl} Take 1 Univers azole-trime -23 05-06 tablet by it y of thoprim 00:00: 04:59 mouth in [place] 800-160 mg 00 :00 the Medical per tablet morning Branch and 1 tablet in the evening. Do all this for 10 days. sulfamethox 2022-0 2022- Yes [id number] 1{tbl} Take 1 Univers azole-trime 8-23 05-06 tablet by it y of thoprim 00:00: 04:59 mouth in [place] 800-160 mg 00 :00 the Medical per tablet morning Branch and 1 tablet in the evening. Do all this for 10 days. tamsulosin 2023-0 Yes .4mg 0.4 mg, Univ ers (FLOMAX) 04-21 Oral, ity of capsule 0.4 23:00: DAILY, [place] mg 00 First dose Medical on Mon Branch 04/21/23 at 1800, Until Discontinu ed, Routine acetaminoph Yes 650mg 650 mg, Un nahun en 04-21 Oral, Q6H, ity of (TYLENOL) 23:00: [place] tablet 650 00 on Mon Medical mg 04/21/23 at Branch 1800, Until Discontinu ed, Routine tamsulosin 2022- No .4mg 0.4 mg, Uni vers (FLOMAX) 04-21 Oral, ity of capsule 0.4 23:00: 19:52 DAILY, [place] mg 00 :42 First dose Medical on Mon [place] 04/21/23 at 1800, Until Discontinu ed, Routine acetaminoph 2022- No 650mg 650 mg, U nivers en 04-21 Oral, Q6H, ity of (TYLENOL) 23:00: 19:52 First dose [place] tablet 650 00 :42 on Mon Medical mg 04/21/23 at Branch 1800, Until Discontinu ed, Routine ketorolac 2022- No 10mg 10 mg, Unive rs (TORADOL) 04-21 Oral, ity of tablet 10 20:09: 09:17 Q6HPRN, [place] mg 44 :13 Starting Medical on Mon04/21/23 at 1509, Until 04/22/23 at 0417, Routine, Pain (scale 4-6), Pain (scale 7-10) ketorolac 2022- No 10mg 10 mg, Unive rs (TORADOL) 04-21 Oral, ity of tablet 10 20:09: 09:17 Q6HPRN, [place] mg 44 :13 Starting Medical on Mon04/21/23 at 1509, Until 04/22/23 at 0417, Routine, Pain (scale 4-6), Pain (scale 7-10) FENTanyl PF 2022-2022- No 25ug 25 mcg, Un nahun (SUBLIMAZE 04-21 Slow IV ity o f (PF)) 18:46: 21:48 Push, [place] injection 58 :55 Q5MIN PRN, Medi ramón 25 mcg 4 doses, Branch Starting on Mon04/21/23 at 1346, Until Mon04/21/23 at 1648, Routine, Pain (scale 7-10), PACU FENTanyl PF 2022-0 2022- No 25ug 25 mcg, Un nahun (SUBLIMAZE 04-21- Slow IV ity o f (PF)) 18:46: 21:48 Push, [place] injection 58 :55 Q5MIN PRN, Medi ramón 25 mcg 4 doses, Branch Starting on Mon04/21/23 at 1346, Until Mon04/21/23 at 1648, Routine, Pain (scale 7-10), PACU lactated 2022- Yes 1000mL at 125 Unive rs ringers IV 8-25 mL/hr, ity of infusion 17:45: 1,000 mL, [place] 1,000 mL 00 IV Medical Infusion, Branch CONTINUOUS , Starting on Mon04/21/23 at 1245, Until Discontinu ed, Routine lactated 2022-2022- No 1000mL at 125 Univ ers ringers IV 04-21 08-26 mL/hr, ity of infusion 17:45: 19:52 1,000 mL, [place] 1,000 mL 00 :42 IV Medical Infusion, Branch CONTINUOUS , Starting on Mon04/21/23 at 1245, Until 04/22/23 at 1452, Routine cefTRIAXone 2022-2022- No 1000mg 1,000 mg, Univers (ROCEPHIN) 04-21- IV ity of 1,000 mg in 14:30: 15:20 [facility] [place] NaCl 0.9% 00 :00 ONCE, 1 Medical (NS) 100 mL dose, On Bran ch MINI-BAG Mon04/21/23 at 0930, Administer over 30 Minutes, 100 mL
Reas on for Anti-Infec tive: Empiric Therapy for Suspected Infection< br>Empiric Therapy Site: Urine
D uration of therapy: 5 days ketorolac 2022-0 2022- No 30mg 30 mg, Unive rs (TORADOL) 04-21-25 Slow IV ity of injection 13:00: 12:26 Push, [place] 30 mg 00 :00 ONCE, 1 Medical dose, On Branch 04/21/23 at 0800, Routine NaCl 0.9% No 1000mL at 999 Uni vers (NS) bolus 04-21 mL/hr, ity of infusion 13:00: 13:30 1,000 mL, [place] 1,000 mL 00 :00 IV Medical Infusion, Branch ONCE, 1 dose, On 04/21/23 at 0800, MARY ondansetron No 4mg 4 mg, Slow Univers (ZOFRAN 04-21 IV Push, ity of (PF)) 12:30: 12:26 ONCE, 1 [place] injection 4 00 :00 dose, On Medi ramón mg Fri Branch 04/21/23 at 0730, MARY morpHINE (4 No 4mg 4 mg, Slow Univers mg/mL) 04-21 IV Push, ity of injection 4 12:15: 12:25 ONCE, 1 [place] mg 00 :00 dose, On Medical Fri Branch 04/21/23 at 0715, STAT testosteron Yes 1 mL Univer s e cypionate 7- Intramuscu it y of 100 mg/mL 00:00: lar once [place] injection 00 weekly for Medi ramón 30 days Branch ergocalcife Yes TAKE 1 Univ ers rol, 7-31 CAPSULE BY ity of vitamin d2, 00:00: MOUTH 1 [place] 1,250 mcg 00 TIME A Medical (50,000 WEEK Branch unit) capsule dextroamphe Yes 1 tablet Un nahun tamine-amph 7-31 Orally ity of etamine 00:00: Twice a [place] (ADDERALL) 00 day for 30 Med ical 30 mg days Branch tablet HYDROCODONE 2005-08 Yes 1-2 Tabs Un nahun -ACETAMINOP 0-17 Oral ity of HEN 5-325 00:00: Q6HPRN [place] MG ORAL TAB 00 Medical Branch OXYBUTYNIN 2005-08 Yes 1 Tab Oral U nivers CHLORIDE 5 0-17 TID prn ity of MG ORAL TAB 00:00: bladder [place] 00 spasm Medical Branch TRIMETHOPRI 2005-08 Yes 1 Tab PO Un nahun M-SULFAMETH [...] MG 00 Medical ORAL TAB Branch HYDROCODONE 2005-3- No 1-2 Tabs U nivers -ACETAMINOP 0-17 08-26 Oral ity of HEN 5-325 00:00: 00:00 Q6HPRN [place] MG ORAL TAB 00 :00 Medical Branch OXYBUTYNIN 2005-3- No 1 Tab Oral Univers CHLORIDE 5 0-17 08-26 TID prn ity o f MG ORAL TAB 00:00: 00:00 bladder [place] 00 :00 spasm Medical Branch TRIMETHOPRI 2005-3- No 1 Tab PO U nivers M-SULFAMETH 0-17 08-26 BID ity of OXAZOLE 00:00: 00:00 [place] 160-800 MG 00 :00 Medical ORAL TAB Branch HYDROCODONE 2005-3- No 1-2 Tabs U nivers -ACETAMINOP 0-17 08-26 Oral ity of HEN 5-325 00:00: 00:00 Q6HPRN [place] MG ORAL TAB 00 :00 Medical Branch OXYBUTYNIN 2005-3- No 1 Tab Oral Univers CHLORIDE 5 0-17 08-26 TID prn ity o f MG ORAL TAB 00:00: 00:00 bladder [place] 00 :00 spasm Medical Branch TRIMETHOPRI 2005-3- No 1 Tab PO U nivers M-SULFAMETH 0-17 08-26 BID ity of OXAZOLE 00:00: 00:00 [place] 160-800 MG 00 :00 Medical ORAL TAB Branch Immunizations Ordered Filled Immunization Date Status Comments [facility] e Immunization Name Name SARS-COV-2 COVID-19 2020-12-02 Completed Unive rsity of MODERNA 12+ YRS 00:00:00 [place] Med ical VACCINE Branch SARS-COV-2 COVID-19 2020-12-02 Completed Unive rsity of MODERNA 12+ YRS 00:00:00 [place] Med ical VACCINE Branch SARS-COV-2 COVID-19 2020-12-02 Completed Unive rsity of MODERNA 12+ YRS 00:00:00 [place] Med ical VACCINE Branch SARS-COV-2 COVID-19 2020-12-02 Completed Unive rsity of MODERNA VACCINE 00:00:00 [facility] ical Branch SARS-COV-2 COVID-19 2020-12-02 Completed Unive rsity of MODERNA 12+ YRS 00:00:00 [place] Med ical VACCINE Branch SARS-COV-2 COVID-19 2020-11-04 Completed Unive rsity of MODERNA 12+ YRS 00:00:00 [place] Med ical VACCINE Branch SARS-COV-2 COVID-19 2020-11-04 Completed Unive rsity of MODERNA 12+ YRS 00:00:00 [place] Med ical VACCINE Branch SARS-COV-2 COVID-19 2020-11-04 Completed Unive rsity of MODERNA 12+ YRS 00:00:00 [place] Med ical VACCINE Branch SARS-COV-2 COVID-19 2020-11-04 Completed Unive rsity of MODERNA VACCINE 00:00:00 [place] Med ical Branch SARS-COV-2 COVID-19 2020-11-04 Completed Unive rsity of MODERNA 12+ YRS 00:00:00 [facility] ical VACCINE Branch Vital Signs Vital Name Observation Time Observation Value Comments Source Systolic blood 2023-04-26 02:13:00 122 mm[Hg] Univer sity of pressure [facility] Diastolic blood 2023-04-26 02:13:00 89 mm[Hg] Unive rsity of pressure [facility] Heart rate 2023-04-26 02:13:00 96 /min [facility] Body temperature 2023-04-26 02:13:00 36.28 Katalina [facility] Respiratory rate 2023-04-26 02:13:00 16 /min [facility] Body height 2023-04-26 02:13:00 170.2 cm [facility] Body weight 2023-04-26 02:13:00 84.823 kg [facility] BMI 2023-04-26 02:13:00 29.29 kg/m2 [facility] Oxygen saturation in 2023-04-26 02:13:00 98 /min [facility] Arterial blood by [facility] Pulse oximetry Branch Systolic blood 2023-04-22 16:29:00 113 mm[Hg] Univer sity of pressure [facility] Diastolic blood 2023-04-22 16:29:00 66 mm[Hg] Unive rsity of pressure [place] [facility] Heart rate 2023-04-22 16:29:00 70 /min [facility] [place] [facility] Body temperature 2023-04-22 16:29:00 36.5 Katalina Univ ersity of [place] [facility] Respiratory rate 2023-04-22 16:29:00 16 /min Univ ersity of [place] [facility] Oxygen saturation in 2023-04-22 16:29:00 97 /min University of Arterial blood by [facility] Pulse oximetry Branch Body height 2023-04-21 22:59:00 170.2 cm [facility]i ty [facility] [place] [facility] Body weight 2023-04-21 22:59:00 87.091 kg [facility]i ty [facility] [place] [facility] BMI 2023-04-21 22:59:00 30.07 kg/m2 [facility] [place] [facility] Systolic blood 2023-04-21 19:15:00 121 mm[Hg] Univer sity of pressure [place] [facility] Diastolic blood 2023-04-21 19:15:00 69 mm[Hg] Unive rsity of pressure [place] [facility] Heart rate 2023-04-21 19:15:00 52 /min [facility]i ty [facility] [place] [facility] Respiratory rate 2023-04-21 19:15:00 5 /min Univ ersity of [place] [facility] Oxygen saturation in 2023-04-21 19:15:00 100 /min University of Arterial blood by [facility] Pulse oximetry Branch Body temperature 2023-04-21 19:03:00 36.44 Katalina Univ ersity of [place] [facility] Body weight 2023-04-21 16:22:00 84.823 kg Universi ty [facility] [place] [facility] BMI 2023-04-21 16:22:00 30.07 kg/m2 [facility] [place] [facility] Systolic blood 2023-04-21 15:20:16 120 mm[Hg] Univer sity of pressure [place] [facility] Diastolic blood 2023-04-21 15:20:16 79 mm[Hg] Unive rsity of pressure [place] [facility] Heart rate 2023-04-21 15:20:16 56 /min [facility]i [facility] [place] [facility] Body temperature 2023-04-21 15:20:16 36.83 Katalina Univ ersity of [place] [facility] Respiratory rate 2023-04-21 15:20:16 16 /min [facility] Oxygen saturation in 2023-04-21 15:20:16 97 /min [facility] Arterial blood by [facility] Pulse oximetry Branch BMI 2023-04-21 12:00:00 29.29 kg/m2 [facility] Body height 2023-04-21 12:00:00 170.2 cm [facility] Body weight 2023-04-21 12:00:00 84.823 kg [facility] Procedures Procedure Date / Time Performing Clinician Source Performed ASSIGNMENT OF BENEFITS 2023-04-26 03:12:54 Doctor Unasissy, [facility] [place] URINALYSIS 2023-04-26 02:25:00 Kelly Boone [facility] NOTICE OF PRIVACY 2023-04-26 02:12:51 Doctor Elier, [facility] PRACTICES [place] [place] CONSENT/REFUSAL FOR 2023-04-26 02:12:19 [facility] DIAGNOSIS AND TREATMENT [place] [facility] URINE CULTURE 2023-04-21 19:03:00 Susie Alexander [facility] FL TIME OR 2023-04-21 18:44:00 [facility] (NON-REPORTABLE) [facility] [place] TIME OR 2023-04-21 18:44:00 [facility] (NON-REPORTABLE) [facility] CYSTOSCOPY WITH INSERTION 2023-04-21 18:07:00 Susie Alexander [facility] STENT URETER Medical [place] URINALYSIS 2023-04-21 13:23:00 Avi Solorio [facility] CT ABDOMEN PELVIS WO 2023-04-21 12:45:06 Avi Solorio [facility] CONTRAST Medical Branch LIPASE 2023-04-21 12:19:00 [facility] 2023-04-21 12:19:00 Avi Solorio [facility] ([id number]) (ALB,T.PRO,BILI Medical Branch T,BU/BC,ALT,AST,ALK PHOS) BASIC METABOLIC PANEL (NA, 2023-04-21 12:19:00 Avi Solorio [facility] K, CL, CO2, GLUCOSE, BUN, Medica l Branch CREATININE, CA) CBC WITH DIFF 2023-04-21 12:19:00 Samantha SolorioJimbo Rey o f [facility] CONSENT/REFUSAL FOR 2023-04-21 11:43:34 Doctor Unassigned, [facility] DIAGNOSIS AND TREATMENT [place] [facility] US ABDOMEN COMPLETE 2022-01-19 22:42:45 Requisition, [facility] NO SHOW OR MISSED 2022-01-19 21:39:37 Doctor Unassigned, [facility] APPOINTMENT POLICY [place] [facility] h ACKNOWLEDGEMENT [facility] PATIENT FINANCIAL 2022-01-19 21:39:21 Doctor Unassigned, [facility] POLICY [place] [facility] NOTICE OF PRIVACY 2022-01-19 21:39:08 Doctor Unassigned, [facility] PRACTICES [place] [facility] Branch CONSENT/REFUSAL FOR 2022-01-19 21:38:58 Doctor Unassigned, [facility] DIAGNOSIS AND TREATMENT [place] [facility] ASSIGNMENT OF BENEFITS 2022-01-19 21:38:47 Doctor Unassigned, [facility] [place] Encounters Start End Encounter Admission Attending Care Care Encounter Source Date/Time Date/Time Type Type Clinicians Facility Department ID 2023-04-21 [id number] Univers 15:55:37 PAUL [facility] 2023-04-21 Emergency X MICHAEL [facility] [id number] Univers 09:48:[address] [facility] 2023-04-25 2023-04-25 [facility] [id number] Univers 21:26:00 22:36:[address] [facility] 2023-04-25 2023-04-25 [facility] [id number] Univers 21:26:00 22:36:00 Kelly BAER [id number] [facility] [id number] [facility] [id number] [facility] 084 Branch 2023-04-21 2023-04-22 Emergency Susie Alexander [facility] [id number] Univers 11:24:00 12:45:00 Earnest Augustine HEALTH [id number] ity of Abner Lorenz CLEAR [id number] [facility] [phone] [facility] 114 Branch ([facility]) 2023-04-21 2023-04-22 Outpatient X ABNER LORENZ [facility] MARYJO 1 [id number] Univers 11:24:00 12:45:[address] [facility] 2023-04-21 2023-04-21 Surgery [facility] [id number] Univers 13:06:00 14:18:00 [facility] [id number] i ty of CLEAR [id number] [facility] [phone] [facility] 020 Branch ([facility]) 2023-04-21 2023-04-21 Emergency X AVI SOLORIO [facility] ERT 1 [id number] Univers 07:01:00 10:23:[address] [facility] 2023-04-21 2023-04-21 Emergency Johnathon, [facility] [id number] Univers 07:01:00 10:23:00 Avi BARE [id number] ity [facility] [id number] [place] [address] [phone] [facility] 084 Branch 2022-01-19 2022-01-19 Outpatient R RADIOLOGY [facility] [id number] Univers 16:44:17 23:59:00 ity of [facility] 2022-01-19 2022-01-19 Hospital Radiology [facility] [id number] Univers 16:44:17 23:59:00 Encounter [place] [id number] ity of [place] FURNACE 4.2.7.2.686 [facility] [id number] [facility] 806 Branch 2020-12-022020-12-02 Outpatient R DAQUAN [facility] [id number] Univers 16:10:00 16:10:[address] [facility] 2020-11-04 2020-11-04 Outpatient R [facility]QUAN [facility] [id number] Univers 16:40:00 16:40:00 JUNO [facility] 2020-10-05 2020-10-05 Outpatient R RANDROSALINDPauline [facility] [id number] Univers 17:20:00 18:27:00 [facility] 2020-09-29 2020-09-29 Laboratory Lab, [facility] [id number]. [id number] Univers 17:19:16 17:39:16 Only Everardo Salgado [facility] [id number] ity of [place] [id number] [place] Professio [phone] [address] Office [facility] 2020-09-29 2020-09-29 Outpatient R DAMIAN [facility] [id number] Univers 17:20:00 17:20:00 [facility] 2020-07-17 2020-07-17 Laboratory Lab, [facility] Fam [facility] 1.2. [id number] Univers 19:32:45 19:52:45 Only [place] Berna [facility] [id number] ity of [place] [id number] [place] Professio [id number] [address] Office Building One 2020-07-17 2020-07-17 Outpatient R CHEYENNE [facility] [id number] Univers 19:40:00 19:40:[address] [facility] 2020-07-17 2020-07-17 Letter Doctor BERNA [id number] Univers 00:00:00 00:00:00 (Out) Unassigned, [place] [id number] ity of [place] [facility] [id number] [place] [phone] [address] Results Test Description Test Time Test Comments Results Result Comments Source URINE CULTURE 2023-04-23 14:30:06 Test Item Value Reference Range Interpretation Comme nts URINE CULTURE (test code = 630-4) No aerobic growth (< 1000 CFU/mL) [facility] Consult Notes Date/Time Note Provider Source 2023-04-21 11:43:26-00:00 Associated Order(s): CONSULT UROLOGY [facility] Formatting of this note is different from the or iginal. UROLOGY CONSULT NOTE Date of Service: 04/21/2023 Faculty Attending: Dr. Alexander Chief Complaint: R and L flank pain History of Present Illness: Brittany Tejeda is a 42 year o ld male with PMH of recurrent nephrolithiasis with multiple prior procedures, who presents with R>>L flank pain. Patient has been experiencing pain since 0100 today. Pa in is associated with nausea , and progressively worsened to 10/10 warranting patient to visit [facility] ED. Evaluation in ED revealed patient is afebrile and hemodynamically stable. They are without leuk ocytosis with wbc count of 7 .7k. Renal function preserved with Cr 1.08 (GFR 76). UA is suggestive of urinary tract infection. CT shows a 1.5 cm L UPJ stone and a 0.4 cm R proximal ureter stone with othe r non-obstructive nephrolith iasis. Patient is unable to tolerate PO intake. They are having subjective fevers and chills. Haven been NPO since last night. Transferred to [facility] for higher level of care and Urology evaluation. Home Medications: (Not in a hospital admission) Histories: No past medical history on file. No past surgical history on file. No family history on file. Social History Socioeconomic History Marital status: Single Spouse name: Not on file Number of children: Not on file Years of education: Not on file Highest education level: Not on file Occupational History Not on file Tobacco Use Smoking status: Not on file Smokeless tobacco: Not on file Substance and Sexual Activity Alcohol use: Not on file Drug use: Not on file Sexual activity: Not on file Other Topics Concern Not on file Social History Narrative Not on file Social Determinants of Health Financial Resource Strain: Not on file Food Insecurity: Not on file Transportation Needs: Not on file Physical Activity: Not on file Stress: Not on file Social Connections: Not on file Intimate Partner Violence: Not on file Housing Stability: Not on file Allergies: No Known Allergies Review of Systems: Constitutional: negative Eyes: negative Ears, nose, mouth, throat: negative Cardiovascular: negative Respiratory: negative Gastrointestinal: negative Genitourinary: (+) per HPI Musculoskeletal: negative Integumentary: negative Neurological: negative Psychiatric: negative Endocrine: negative Hematologic/Lymphatic: negative Allergic/Immunologic: negative, allergies listed above Physical Examination: Blood pressure 129/89, pulse 57, temperature 36.6 ?C (97.8 ?F), temperature source Oral, resp. rate 18, weight 84.8 kg (187 lb), SpO2 98 %. Constitutional:no acute distress Cardiovascular: regular rate and rhythm Respiratory: respirations unlabored on room air Gastrointestinal: soft, non- distended, non-tender, R costovertebral angle tenderness Musculoskeletal: no clubbing, cyanosis or edema Skin: no rashes Laboratory: Per HPI Radiology: I independently visualized the images noted armando sommers CT ABDOMEN PELVIS WO CONTRAST Result Date: 04/21/2023 EXAM: CT ABDOMEN PELVIS WO C ONTRAST HISTORY: 42 years-old Male; Provided indication: Flank pain, kidney stone suspected . TECHNIQUE: Contiguous axial imaging from the level of the lung bases through the proximal thighs was perform ed without the intravenous administration of contrast. Coronal and sagittal reconstructions were obtained. COMPARISON: Ultrasound abdomen 01/19/2022 FINDINGS: LOWER THORAX: Th e lung bases are clear. LIVE R: The liver measures up to 19.4 cm. Has normal contours. GALLBLADDER AND BILIARY TREE: Status post cholecystectomy. No choledocholithiasis. No intra or extrahepatic biliary ductal dilation is visualize d. SPLEEN: The spleen is normal in size. PANCREAS: The parenchyma is within normal limits. No ductal dilation is visualized. ADRENAL GLANDS: No adrenal masses are seen. KIDNE YS: Left: Normal in size. Hy podensity in the superior pole measures up to 1 cm and has simple fluid attenuation, statistically likely to be a cyst. There are several nonobstructing stones in the left ki dney measuring 2-4 mm. Mild left hydronephrosis secondary to a 1.5 cm UPJ stone. . Right: Normal in size. A couple of nonobstructing stones in the renal calyces measuring 3-4 mm. There is a 0.4 cm stone in the right proximal urete r resulting moderate hydronephrosis. Mild periureteric fat stranding, right greater than left. PELVIS/BLADDER: The bladder is adequately distended and appears unremarkable. G I TRACT: No dilation or fide l wall thickening is seen. Appendix is not visualized however no secondary signs of appendicitis in the right lower quadrant. There are a few colonic diverticula. PERITONEUM AND RETROPERITONEUM: No intr a-abdominal free air or fluid collection is visualized. LYMPH NODES: No lymphadenopathy. VESSELS: The vessels appear unremarkable within limitations of a non-contrasted exami nation. BONES AND SOFT TISSU ES: No suspicious lytic or sclerotic bony lesions are present. 4 mm stone in the right prox imal ureter resulting in moderate hydronephrosis. 1.4 cm stone at the left UPJ with mild hydronephrosis. Additional nonobstructing bilateral nonobstructive nephrolithiasis. P reliminary Report Dictated b y Resident: Yeny Dupree I, Kait Jim MD., have reviewed this study and agree with the above report. Procedure: none Assessment and Plan: 42 year old male with sympto matic 0.4 cm R proximal ureter stone and 1.5 cm L UPJ stone. Patient is afebrile and hemodynamically stable, without leukocytosis, and preserved renal function. UA positive f or UTI. Patient is unable to tolerate PO intake. Pain is currently not well controlled. - Plan for OR for bilateral ureteral stent place ment today - Informed consent obtained - NPO diet - Abx: IV Ceftriaxone 1,000 mg given in [facility] ER @ 0900 Discussed case with faculty, Dr. Alexander. Ana Hodges MD Urology Resident Pager: please page phone manager using [employer] Associated attestation - Susie Alexander MD - 04/21/2023 11:52 AM CDT I personally examined the pa tient on 04/21/2023 and agree with the resident's note as written. I actively participated in the decision-making process. Please see their note for additional details. Thank you for allowing us to parti cipate in the care of this patient and do not hesitate to contact me with any questions. Susie Alexander MD 04/21/23 11:52 AM Notes Date/Time Note Provider Source 2023-04-25 Formatting of this note might be differe nt from the original. Smita Hamilton RN [facility] 22:35:59-00:00 Pt dc'd home ambulatory with SO. Pt v/u of dc in structions. 2023-04-25 Formatting of this note might be differe nt from the original. Kae Peterson RN [facility] 21:13:00-00:00 Patient states: "Blood in my urine progressively going since Monday. I was seen here last Monday, was told I have kidney stones and was transferred to [facility] where they put stents. I don't have pain." 2023-04-25 Formatting of this note is different from the or iginal. [facility] 21:12:00-00:00 [facility] Emergency Department Note Patient Name: Brittany Tejeda Date of : 1980 42 year old male Treatment Room: Room/bed info not found Primary Care Physician: James Lombardo Patient Escorted by: Family [5] Mode of Arrival: Personal means [1] EMS Treatment Prior to ED Arrival: Travel and Exposure Screening: Symptoms Does patient have any of these symptoms?: (not r ecorded) Exposure Screening Has patient had contact with someone with a communicable disease in the last month?: (not recorded) Diseases exposed to:: (not recorded) Is Patient ?: (not recorded) Exposure Date: (not recorded) Chief Complaint: Chief Complaint Patient presents with Blood In Urine History of Present Illness: The patient presents from [facility] for evaluation for hematuria that started today. He was seen here in April 21 and diagnosed with bilateral renal stones and transferred to the [facility] where sam valente placed a stent in the le ureter. He is scheduled to have lithotripsy on May 02. He states he had been doing well until he started with a hematuria today. He is able to fully empty his bladder and denies the passage of c lots. No abdominal pain. No flank pain. No nausea or vomiting. No fevers or chills. No medications for symptoms today. Here for evaluation. Past Medical History/Immunizations: History reviewed. No pertinent past medical hist ory. Tetanus received in last 5 years: Unknown Allergies: No Known Allergies Past Social History: Tobacco Use Never smoked or used smokeless tobacco. Past Surgical History: Past Surgical History: Procedure Laterality Date CYSTOSCOPY WITH INSERTION STENT URETER (SHX) Bi lateral 04/21/2023 Surgeon: Susie Alexander MD; Location: [facility] OR LOCATION Review of Systems: Review of Systems Constitutional: Negative for chills and fever. Respiratory: Negative for cough and shortness of breath. Cardiovascular: Negative for chest pain. Gastrointestinal: Negative for abdominal pain, n ausea and vomiting. Genitourinary: Positive for hematuria. Negative for dysuria. Musculoskeletal: Negative for arthralgias, neck pain and neck stiffness. Skin: Negative for wound. Neurological: Negative for dizziness. Psychiatric/Behavioral: Negative for agitation. Endocrine: Negative for goiter. Physical Exam: ED Triage Vitals [04/25/232112] Weight 84.8 kg (187 lb) Actual or estimated Estimated by patient/family report Height 1.702 m (5' 7") BP 122/89 Pulse 96 Resp 16 Temp 36.3 ?C (97.3 ?F) Temp source Oral SpO2 98 % Measured on Room air Physical Exam Vitals and nursing note reviewed. Constitutional: Appearance: Normal appearance. He is normal maria guadalupe ght. HENT: Head: Normocephalic and atraumatic. Cardiovascular: Rate and Rhythm: Normal rate and regular rhythm . Pulses: Normal pulses. Pulmonary: Effort: Pulmonary effort is normal. No respirat ory distress. Abdominal: General: There is no distension. Palpations: Abdomen is soft. There is no mass. Tenderness: There is no abd ominal tenderness. There is no right CVA tenderness, left CVA tenderness or guarding. Musculoskeletal: General: Normal range of motion. Cervical back: Normal range of motion and neck supple. Skin: General: Skin is dry. Neurological: General: No focal deficit present. Mental Status: He is oriented to person, place, and time. Radiology: No orders to display Lab Results: Lab Results URINALYSIS - Abnormal Result Value Ref Range APPEARANCE Cloudy (*) Clear COLOR Ashli (*) Yellow PH 6.0 4.8 - 8.0 SP GRAVITY 1.021 1.003 - 1.030 GLU U QUAL Normal Normal BLOOD 3+ (*) Negative KETONES Negative Negative PROTEIN 100 mg/dL (*) Negative UROBILIN Normal Normal BILIRUBIN Negative Negative NITRITE Negative Negative LEUK KRUNAL 250/uL (*) Negative RBC/HPF >182 (*) 0 - 3 HPF WBC/HPF >182 (*) 0 - 5 HPF BACTERIA Few (*) Negative MUCOUS Slight (*) Negative LPF YEAST BUD 19 (*) <=1 HPF EKG: If EKG completed, see Procedure Note. Orders and Treatments: Orders Placed This Encounter Procedures URINALYSIS No orders of the defined types were placed in th is encounter. First Provider Eval: ED Events Date/Time Event User Comments 04/25/232116 Medical Screening Begins KELLY BOONE DO -- 04/25/232116 First Provider Evaluation KELLY DOWD DO -- No notes of EC Admission Criteria type on file. ED COURSE Diagnosis/Impression as of 04/25/232230 Hematuria, unspecified type Procedures: Procedures MDM: Medical Decision Making The patient presents from [facility] for evaluation for hematuria started today. He was seen here in April 21 and diagnosed with bilateral renal stones and transferred to the [facility] for urology sita kuldeep a ureter stent on the le ft side. He is scheduled to have lithotripsy this coming May 02. He denies any pain at present time. He does feel like he is emptying his bladder completely. No dysuria. No medications for his symptoms. Vital signs are stable here in the ER. His abdomen is soft and nontender on examination . He has no CVA tenderness bilaterally. Differential diagnosis inclu aris UTI, movement of his kidney stones, movement of the ureter stent We will check a urinalysis. The patient denies pain at present time and does not desire pain medication. Anticipate discharge home later. 2229 -the patient is doing well here in the ER. He continues to deny any pain. His urinalysis shows hematuria as well as a slig ht infection. He is currently taking Bactrim as prescribed to him on April 22. He has follow-up with urology scheduled for Apr. He remained stable here in [facility] ER and is okay for discharge home with PCP follow-up. Problems Addressed: Hematuria, unspecified type: acute illness or in jury Amount and/or Complexity of Data Reviewed Labs: ordered. Decision-making details documente d in ED Course. Flowsheet Documentation: Scoring Tools: No data recorded Disposition/Condition: ED Disposition ED Disposition Disch - Home Condition Stable Comment -- Discharge Medications: Patient's Medications START taking these medications No medications on file CONTINUE taking these medications which have NOT CHANGED DEXTROAMPHETAMINE-AMPHETAMI NE (ADDERALL) 30 MG TABLET 1 tablet Orally Twice a day for 30 days ERGOCALCIFEROL, VITAMIN D2, 1,250 MCG (50,000 UNIT) CAPSULE TAKE 1 CAPSULE BY MOUTH 1 TIME A WEEK GABAPENTIN 300 MG CAPSULE T иван 1 capsule by mouth in the morning and 1 capsule at noon and 1 capsule in the evening. Do all this for 30 days. OXYBUTYNIN CHLORIDE 5 MG TA BLET Take 1 tablet by mouth every 8 (eight) hours as needed for Bladder spasms for up to 30 days. SULFAMETHOXAZOLE-TRIMETHOPR IM 800-160 MG PER TABLET Take 1 tablet by mouth in the morning and 1 tablet in the evening. Do all this for 10 days. TAMSULOSIN 0.4 MG 24 HR CAP YAIMA Take 1 capsule by mouth in the morning for 30 days. TESTOSTERONE CYPIONATE 100 MG/ML INJECTION 1 mL Intramuscular once weekly for 30 days START taking Modified Medications as Prescribed No medications on file STOP taking these medications No medications on file Follow-up: Electronically signed by: Kelly Boone DO 04/25/232230 T 2023-04-22 Formatting of this note might be differe nt from the original. Courtney Del Cid RN [facility] 12:10:02-00:00 Problem: Pain Goal: Control of pain at or below patient's docu mented comfort goal Outcome: Adequate for discharge Goal: Reduction in pain sensation Outcome: Adequate for discharge Problem: Discharge Planning Goal: Adequate for discharge Outcome: Adequate for discharge Goal: Effective communication Outcome: Adequate for discharge Electronically signed by Courtney Del Cid RN at 0 04/22/2023 12:10 PM CDT 2023-04-21 Formatting of this note might be differe nt from the original. Constantine Allen RN [facility] 20:45:58-00:00 Problem: Pain Goal: Control of pain at or below patient's docu mented comfort goal Outcome: Progressing as expected Goal: Reduction in pain sensation Outcome: Progressing as expected Problem: Discharge Planning Goal: Adequate for discharge Outcome: Progressing as expected Goal: Effective communication Outcome: Progressing as expected Electronically signed by Constantine Allen RN at 8:46 PM CDT 2023-04-21 Formatting of this note might be differe nt from the original. Stacy Dillon RN [facility] 19:25:53-00:00 Problem: Pain Goal: Control of pain at or below patient's docu mented comfort goal Outcome: Progressing as expected Goal: Reduction in pain sensation Outcome: Progressing as expected Problem: Discharge Planning Goal: Adequate for discharge Outcome: Progressing as expected Goal: Effective communication Outcome: Progressing as expected Electronically signed by Stacy Dillon RN at 0 04/21/2023 7:25 PM CDT 2023-04-21 Formatting of this note might be differe nt from the original. Leslye Paris [facility] 12:14:41-00:00 Social Work Note: 04/21/2023 12:14 PM Pt in pre-op attempted SFA, SW to follow up. [place]lye [place] [facility]/Care Management ED/OB/PEDI crime prevention worker Office.[phone]. Cell. [phone] Email. [email or web address] Weekend Case Management: p. [phone] Electronically signed by Leslye Paris [facility]me 04/21/2023 12:15 PM CDT 2023-04-21 Formatting of this note might be differe nt from the original. Chela Rutherford RN [facility] 12:07:24-00:00 Patient taken to pre-op. 2023-04-21 Formatting of this note might be differe nt from the original. Corrine Petit [facility] 11:26:25-00:00 Sent by urology for bilatera l kidney stones and hydronephrosis. Patient having flank pain since 0100 today. Pt denies fevers at home. Rigoberto RN 2023-04-21 Formatting of this note might be differe nt from the original. Stephanie Fabian RN [facility] 10:21:42-00:00 Report given to [facility] at bedside; patient ambulatory with steady gait to restroom prior to loading on stretcher Electronically signed by Stephanie Fabian RN a t 04/21/2023 10:22 AM T 2023-04-21 [facility] 10:11:13-00:00 Patient transferred to [facility] for diagnosis of Kidney stones/hydronephrosis Patient agrees to transfer/a dmit plan and verbalized understanding of plan of care, family aware of plan Patient awake alert, oriente d, resp reg unlabored, skin w/d PIV patent, no s/s infiltration noted, No adverse reaction to medications given while i n ED. Report given to ZA Latif Electronically signed by Stephanie Fabian RN a t 04/21/2023 10:12 AM T 2023-04-21 Formatting of this note might be differe nt from the original. Azul Watson [facility] 10:06:11-00:00 Called [facility] ambulance @ 1000 ETA is 25 minutes. Electronically signed by Azul Watson at 10:06 AM T 2023-04-21 [facility] 09:55:31-00:00 Patient agrees to be transfe rred as per Dr. Solorio; Will start transfer process Electronically signed by Stephanie Fabian RN a t 04/21/2023 9:56 AM T 2023-04-21 [facility] 09:54:46-00:00 Dr. Solorio at bedside Electronically signed by Stephanie Fabian RN a t 04/21/2023 9:54 AM CDT 2023-04-21 [facility] 09:45:00-00:00 Patient has expressed not wa nting to be transferred and would like to speak with Dr. Solorio. Notified MD Electronically signed by Stephanie Fabian RN a t 04/21/2023 9:54 AM CDT 2023-04-21 Formatting of this note might be differe nt from the original. Gama Brunson [facility] 07:00:06-00:00 Patient complaining of right flank pain that started at 1 am. Also has nausea but no vomiting. Able to void. History of kidney stones. RN 2023-04-21 Formatting of this note is different from the or iginal. 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 No radiation. + nausea, no vomiting. Hx of kidney stones. Denies POPE, dizziness, fevers , cough, CP, SOB, abdominal pain, vomiting or diarrhea. Past Medical History/Immunizations: No past medical history on file. Tetanus received in last 5 years: Unknown Allergies: No Known Allergies Past Social History: Substance & Sexual Activity No substance use or sexual activity history on file. Past Surgical History: No past surgical history on file. Review of Systems: Review of Systems Constitutional: Negative for activity change, appetite change, chills, diaphoresis, fatigue, fever, unexpected weight change, weight gain and weight loss. HENT: Negative for congestio n, dental problem, drooling, ear discharge, ear pain, facial swelling, hearing loss, mouth sores, nosebleeds, postnasal drip, rhinorrhea, sinus pressure, sneezing, sore throa t, tinnitus, trouble swallowing and voice change . Eyes: Negative for photophob ia, pain, discharge, redness, itching and visual disturbance. Respiratory: Negative for ap kerry, cough, choking, chest tightness, shortness of breath, wheezing and stridor. Breasts: Negative for discharge, mass, pain and unequal size. Cardiovascular: Negative for chest pain, palpita tions and leg swelling. Gastrointestinal: Positive f or nausea. Negative for abdominal distention, abdominal pain, anal bleeding, blood in stool, constipation, diarrhea, rectal pain and vomiting. Genitourinary: Positive for flank pain. Negative for bladder incontinence, dysuria, urgency, polyuria, frequency, hematuria, decreased urine volume, discharge, penile swelling, scrotal swelling, enuresi s, difficulty urinating, gen ital sores, penile pain, testicular pain and nocturia. Musculoskeletal: Negative fo r arthralgias, back pain, gait problem, joint swelling, myalgias, neck pain and neck stiffness. Skin: Negative for color change, pallor, rash an d wound. Neurological: Negative for d izziness, tremors, seizures, syncope, facial asymmetry, speech difficulty, weakness, light-headedness, numbness and headaches. Psychiatric/Behavioral: Nega tive for agitation, behavioral problems, confusion, decreased concentration, dysphoric mood, hallucinations, self-injury, sleep disturbance and suicidal ideas. The patient is not nervous/anxious and is not hyperactive. Hematological: Negative for adenopathy, cold intolerance and heat intolerance. Does not bruise/bleed easily. Endocrine: Negative for goit er, hair loss, cold intolerance, heat intolerance, polydipsia, polyphagia, polyuria, weight gain and weight loss. Physical Exam: ED Triage Vitals Weight 04/21/23 0700 84.8 kg (187 lb) Actual or estimated -- Height 04/21/23 07 1.702 m (5' 7") BP 04/21/23 0700 118/83 Pulse 04/21/23 0700 61 Resp 04/21/23 0700 18 Temp 04/21/23 07 36.8 ?C (98.3 ?F) Temp [facility] -- SpO2 04/21/23 0700 99 % Measured on 04/21/23 0844 Room air Physical Exam Vitals and nursing note reviewed. Constitutional: General: He is in acute distress. Appearance: Normal appearan ce. He is normal weight. He is not ill-appearing, toxic-appearing or diaphoretic. HENT: Head: Normocephalic and atraumatic. Right Ear: Tympanic membran e and ear canal normal. There is no impacted cerumen. Left Ear: Tympanic membrane and ear canal normal. There is no impacted cerumen. Nose: Nose normal. No congestion or rhinorrhea. Mouth/Throat: Mouth: Mucous membranes are dry. Pharynx: Oropharynx is keren r. No oropharyngeal exudate or posterior oropharyngeal erythema. Eyes: General: No scleral icterus. Right eye: No discharge. Left eye: No discharge. Extraocular Movements: Extraocular movements in tact. Conjunctiva/sclera: Conjunctivae normal. Pupils: Pupils are equal, round, and reactive t o light. Neck: Vascular: No carotid bruit. Cardiovascular: Rate and Rhythm: Normal rate and regular rhythm . Pulses: Normal pulses. Heart sounds: Normal heart sounds. No murmur he stefan. No friction rub. No gallop. Pulmonary: Effort: Pulmonary effort is normal. No respirat ory distress. Breath sounds: Normal breat h sounds. No stridor. No wheezing, rhonchi or rales. Chest: Chest wall: No tenderness. Abdominal: General: Abdomen is flat. Bowel sounds are norm al. There is no distension. Palpations: Abdomen is soft. There is no mass. Tenderness: There is no abd ominal tenderness. There is right CVA tenderness. There is no left CVA tenderness, guarding or rebound. Hernia: No hernia is present. Musculoskeletal: General: No swelling, tende rness, deformity or signs of injury. Normal range of motion. Cervical back: Normal range of motion and neck supple. No rigidity or tenderness. Right lower leg: No edema. Left lower leg: No edema. Lymphadenopathy: Cervical: No cervical adenopathy. Skin: General: Skin is warm and dry. Capillary Refill: Capillary refill takes less t winter 2 seconds. Coloration: Skin is not jaundiced or pale. Findings: No bruising, erythema, lesion or rash . Neurological: General: No focal deficit present. Mental Status: He is alert and oriented to person, place, and time. Mental status is at baseline. Cranial Nerves: No cranial nerve deficit. Sensory: No sensory deficit. Motor: No weakness. Coordination: Coordination normal. Gait: Gait normal. Deep Tendon Reflexes: Reflexes normal. Psychiatric: Mood and Affect: Mood normal. Behavior: Behavior normal. Thought Content: Thought content normal. Judgment: Judgment normal. Radiology: CT ABDOMEN PELVIS WO CONTRAST Final Result EXAM: CT ABDOMEN PELVIS WO CONTRAST HISTORY: 42 years-old Male; Provided indication: Flank pain, kidney stone suspected . TECHNIQUE: Contiguous axial imaging from the lev el of the lung bases through the proximal thighs was performed withou t the intravenous administration of contrast. Coronal and sagittal reconstructions were obtained. COMPARISON: Ultrasound abdomen 01/19/2022 FINDINGS: LOWER THORAX: The lung bases are clear. LIVER: The liver measures up to 19.4 cm. Has nor mal contours. GALLBLADDER AND BILIARY TREE: Status post cholec ystectomy. No choledocholithiasis. No intra or extrahepatic bi liary ductal dilation is visualized. SPLEEN: The spleen is normal in size. PANCREAS: The parenchyma is within normal limits . No ductal dilation is visualized. ADRENAL GLANDS: No adrenal masses are seen. KIDNEYS: Left: Normal in size. Hypodensity in the superio r pole measures up to 1 cm and has simple fluid attenuation, statistically likely to be a cyst. There are several nonobstructing stones in the left ki dney measuring 2-4 mm. Mild left hydronephrosis secondary to a 1.[address] one. . Right: Normal in size. A couple of nonobstructin g stones in the renal calyces measuring 3-4 mm. There is a 0.4 cm ston e in the right proximal ureter resulting moderate hydronephrosis. Mild periureteric fat stranding, right greater t winter left. PELVIS/BLADDER: The bladder is adequately disten ded and appears unremarkable. GI TRACT: No dilation or bowel wall thickening i s seen. Appendix is not visualized however no secondary signs of appendi citis in the right lower quadrant. There are a few colonic diverticula. PERITONEUM AND RETROPERITONEUM: No intra-abdomin al free air or fluid collection is visualized. LYMPH NODES: No lymphadenopathy. VESSELS: The vessels appear unremarkable within limitations of a non-contrasted examination. BONES AND SOFT TISSUES: No suspicious lytic or s clerotic bony lesions are present. IMPRESSION 4 mm stone in the right proximal ureter resultin g in moderate hydronephrosis. 1.4 cm stone at the left UPJ with mild hydroneph rosis. Additional nonobstructing bilateral nonobstructi ve nephrolithiasis. Preliminary Report Dictated by Resident: Yeny Dupree I, Kait Jim MD., have reviewed this s tudy and agree with the above report. Lab Results: Lab Results URINALYSIS - Abnormal Result Value Ref Range APPEARANCE Hazy (*) Clear COLOR Yellow Yellow PH 5.0 4.8 - 8.0 SP GRAVITY 1.023 1.003 - 1.030 GLU U QUAL Normal Normal BLOOD 3+ (*) Negative KETONES Negative Negative PROTEIN 30 mg/dL (*) Negative UROBILIN 2.0 mg/dL (*) Normal BILIRUBIN Negative Negative NITRITE Negative Negative LEUK KRUNAL 25/uL (*) Negative RBC/HPF >182 (*) 0 - 3 HPF WBC/HPF 39 (*) 0 - 5 HPF BACTERIA Few (*) Negative MUCOUS Moderate (*) Negative LPF CA OXALATE 1 <=1 HPF YEAST BUD 2 (*) <=1 HPF QAMAR EPITH 3 (*) <=1 HPF HEPATIC FUNCTION PANEL (8007 6) (ALB,T.PRO,BILI T,BU/BC,ALT,AST,ALK PHOS) - Normal TOTAL BILI 0.5 0.1 - 1.1 mg/dL BILI UNCON 0.4 0.1 - 1.1 mg/dL BILI CONJ 0.0 0.0 - 0.3 mg/dL T PROTEIN 7.9 6.3 - 8.2 g/dL ALBUMIN 4.5 3.5 - 5.0 g/dL ALK PHOS 82 34 - 122 U/L ALTv 38 5 - 50 U/L AST(SGOT) 27 13 - 40 U/L LIPASE - Normal LIPASE 158 0 - 220 U/L CBC WITH DIFF WBC 7.72 4.20 - 10.70 10*3/?L RBC 5.27 4.26 - 5.52 10*6/?L HGB 15.9 12.2 - 16.4 g/dL HCT 46.5 38.4 - 49.3 % MCV 88.2 81.7 - 95.6 fL MCH 30.2 26.1 - 32.7 pg MCHC 34.2 31.2 - 35.0 g/dL RDW-SD 43.1 38.5 - 51.6 fL RDW-CV 13.4 12.1 - 15.4 % PLT 262 150 - 328 10*3/?L MPV 10.0 9.8 - 13.0 fL NRBC/100 WBC 0.0 0.0 - 10.0 /100 WBCs NRBC x10^3 <0.01 10*3/?L GRAN MAT (NEUT) % 61.0 % IMM GRAN % 0.40 % LYMPH % 29.8 % MONO % 6.0 % EOS % 2.5 % BASO % 0.3 % GRAN MAT x10^3(ANC) 4.72 1.99 - 6.95 10*3/uL IMM GRAN x10^3 0.03 0.00 - 0.06 10*3/uL LYMPH x10^3 2.30 1.09 - 3.23 10*3/uL MONO x10^3 0.46 0.36 - 1.02 10*3/uL EOS x10^3 0.19 0.06 - 0.53 10*3/uL BASO x10^3 <0.03 0.01 - 0.09 10*3/uL BASIC METABOLIC PANEL (NA, K, CL, CO2, GLUCOSE, BUN, CREATININE, CA) NA 140 135 - 145 mmol/L K 3.5 3.5 - 5.0 mmol/L CL 103 98 - 108 mmol/L CO2 TOTAL 29 23 - 31 mmol/L AGAP 8 2 - 16 BUN 22 7 - 23 mg/dL GLUCOSE 107 70 - 110 mg/dL CREATININE 1.08 0.60 - 1.25 mg/dL CALCIUM 9.2 8.6 - 10.6 mg/dL eGFR 75.7 mL/min/1.73m2 URINE CULTURE EKG: If EKG completed, see Procedure Note. Orders and Treatments: Orders Placed This Encounter Procedures CT ABDOMEN PELVIS WO CONTRAST CBC WITH DIFF URINALYSIS BASIC METABOLIC PANEL (NA, K, CL, CO2, GLUCOSE, BUN, CREATININE, CA) HEPATIC FUNCTION PANEL (36555) (ALB,T.PRO,BILI T,BU/BC,ALT,AST,ALK PHOS) LIPASE URINE CULTURE Orders Placed This Encounter Medications NaCl 0.9% (NS) bolus infusion 1,000 mL ketorolac (TORADOL) injection 30 mg morpHINE (4 mg/mL) injection 4 mg ondansetron (ZOFRAN (PF)) injection 4 mg cefTRIAXone (ROCEPHIN) 1,000 mg in NaCl 0.9% (N S) 100 mL MINI-BAG First Provider Eval: ED Events Date/Time Event User Comments 04/21/23712 Medical Screening Begins SAMANTHA SOLORIO DO -- 04/21/23712 First Provider Evaluation SAMANTHA SOLORIO DO -- No notes of EC Admission Criteria type on file. ED COURSE Diagnosis/Impression as of 04/21/23 0939 Right flank pain Procedures: Procedures MDM: Medical Decision Making Patient here for right flank pain, 7/10 sharp and throbbing started around 1am today. No radiation. + nausea, no vomiting. Hx of kidney stones. Denies POPE, dizziness, fevers , cough, CP, SOB, abdominal pain, vomiting or diarrhea. Amount and/or Complexity of Data Reviewed Labs: ordered. Decision-making details documente d in ED Course. Details: UA infected hazy urine. Radiology: ordered. Decision-making details docu mented in ED Course. Details: CT abd/pelvis: Bilateral kidney stones with bilateral HN. Discussion of management or test interpretation with external provider(s): Spoke to Urology phone manager, Dr. Alexander who requested patient be transferred to [facility]. Bed control will arrange transfer. Risk Prescription drug management. Parenteral controlled substances. Flowsheet Documentation: Scoring Tools: No data recorded Dx: Bilateral kidney stones. UTI. Disposition/Condition: Transferred to [facility]. Avi Solorio D.O. EM Physician RTI Billing ID #[id number] Avi Solorio DO 04/21/23 0940 Electronically signed by Avi Solorio DO at 0 04/21/2023 9:40 AM CDT
[2023-04-27 19:37] LABS: Specific Gravity 1.009 (1.005-1.030); Urine Bacteria None Seen /HPF (<20); Urine Bilirubin NEGATIVE (Negative); Urine Blood 3+ (OVER) (Negative); Urine Clarity Extremely Turbid (Clear); Urine Color Colorless (Yellow); Urine Glucose NEGATIVE (Negative); Urine Mucus Slight /HPF (None Seen); Urine Protein 1+ (Negative); Urine RBC >50 /HPF (None Seen); Urine Urobilinogen Normal (Normal)
[2023-04-27 20:05] LABS: Absolute Lymphocytes (CBC) 2.9 K/uL (0.7-4.9); Hematocrit 42.9 % (39.6-49.0); Lymphocytes % 32.2 % (15.3-44.8); MCV 87.5 fL (80-100); MPV 7.9 fL (7.6-11.3); Platelets 262 thou/uL (152-406); RBC Red Blood Cell Count 4.91 M/uL (4.33-5.43)
[2023-04-27 20:26] LABS: Albumin 3.7 g/dL (3.4-5.0); Bilirubin Total 0.2 mg/dL (0.2-1.0); Protein, Total 7.6 g/dL (6.4-8.2)
[2023-04-27 20:28] LABS: Potassium 4.2 mEq/L (3.5-5.1)
--- NOTE | 2023-04-27 21:03 | ER ---
Nurse's Notes [facility] Name: Morgan Castillo Age: 42 yrs Sex: Male : 1980 Arrival Date: 04/27/2023 Time: 17:38 Bed 6 Private MD: Diagnosis: Left flank pain;Renal insufficiency Presentation: 04/27 17:58 Chief complaint: Patient states: he recently had stents placed in both ureters recently ap3 due to kidney stones. patient was informed if he started having blood in his urine to be evaluated at an ER. patient states that the blood in the urine began yesterday 04/26/2023. Coronavirus screen: At this time, the client does not indicate any symptoms associated with coronavirus-19. Ebola Screen: No symptoms or risks identified at this time. Initial Sepsis Screen: Does the patient meet any 2 criteria? No. Patient's initial sepsis screen is negative. Does the patient have a suspected source of infection? Yes: Dysuria/Frequency/Urgency/UTI. Risk Assessment: Do you want to hurt yourself or someone else? Patient reports no desire to harm self or others. Onset of symptoms was March 2023. 17:58 Method Of Arrival: Ambulatory ap3 17:58 Acuity: JASON 3 ap3 Triage Assessment: 18:02 General: Appears in no apparent distress. Behavior is calm, cooperative, appropriate ap3 for age. Pain: Complains of pain in left lower quadrant. Pain: Pain currently is 6 out of 10 on a pain scale. Neuro: Level of Consciousness is awake, alert, obeys commands, Oriented to person, place, time, situation. Cardiovascular: Patient's skin is warm and dry. Respiratory: Airway is patent Respiratory effort is even, unlabored, Respiratory pattern is regular, symmetrical. GI: Reports lower abdominal pain. Historical: - Allergies: 18:01 NKA; ap3 - PMHx: 18:01 Kidney stones; ap3 - Immunization history:: Adult Immunizations up to date. - Social history:: Smoking status: Patient denies any tobacco usage or history of. Screenin:03 [facility] ED Fall Risk Assessment (Adult) History of falling in the last 3 months, ap3 including since admission No falls in past 3 months (0 pts). Abuse screen: Denies threats or abuse. Nutritional screening: No deficits noted. Tuberculosis screening: No symptoms or risk factors identified. Assessment: 20:01 General: Appears in no apparent distress. comfortable, Behavior is calm, cooperative. lg3 Pain: Complains of pain in abdomen. Neuro: No deficits noted. Lam Agitation-Sedation Scale (RASS): 0 - Alert and Calm Level of Consciousness is awake, alert, obeys commands, Oriented to person, place, time, situation. Cardiovascular: No deficits noted. Denies chest pain, shortness of breath, Capillary refill < 3 seconds Clubbing of nail beds is absent JVD is absent Patient's skin is warm and dry. Respiratory: No deficits noted. Airway is patent Respiratory effort is even, unlabored, Respiratory pattern is regular, symmetrical. GI: No deficits noted. Abdomen is round non-distended, Bowel sounds present X 4 quads. Abd is soft X 4 quads Abdomen is tender to palpation in left lower quadrant. : Urine is blood tinged, Reports cramping. EENT: No deficits noted. No signs and/or symptoms were reported regarding the EENT system. Derm: No deficits noted. No signs and/or symptoms reported regarding the dermatologic system. Skin is intact, is healthy with good turgor, Skin is dry, Skin is normal, Skin temperature is warm. Musculoskeletal: No deficits noted. No signs and/or symptoms reported regarding the musculoskeletal system. Circulation, motion, and sensation intact. Range of motion: intact in all extremities. 21:04 Reassessment: No changes from previously documented assessment. Patient and/or family vc1 updated on plan of care and expected duration. Pain level reassessed. Patient is alert, oriented x 3, equal unlabored respirations, skin warm/dry/pink. Vital Signs: 17:58 BP 129 / 78; Pulse 79; Resp 18; Temp 98.4; Pulse Ox 99% ; ap3 17:58 Pain 6/10; ap3 20:00 BP 124 / 58; Pulse 73; Resp 18; Pulse Ox 99% ; cg3 20:15 BP 121 / 81; Pulse 63; Resp 18; Pulse Ox 99% ; vc1 21:04 BP 106 / 58; Pulse 64; Resp 17; Pulse Ox 98% ; vc1 17:58 Pain Scale: Adult ap3 ED Course: 17:41 Patient arrived in ED. ts1 17:42 Maribell Parisi PA-C is PHCP. sb4 17:42 Navarro, Wolf, DO is Attending Physician. sb4 18:00 Triage completed. ap3 18:03 Arm band placed on left wrist. ap3 19:27 Urinalysis w/ reflexes Sent. cg3 19:58 CBC with Diff Sent. cg3 19:58 CMP Sent. cg3 19:59 Meera Lambert, RN is Primary Nurse. lg3 19:59 Inserted saline lock: 22 gauge in left antecubital area, using aseptic technique. Blood lg3 collected. 20:01 Patient has correct armband on for positive identification. Placed in gown. Bed in low lg3 position. Call light in reach. Side rails up X 1. Client placed on continuous cardiac and pulse oximetry monitoring. NIBP monitoring applied. Door closed. Noise minimized. Warm blanket given. Family accompanied patient. 20:01 Patient maintains SpO2 saturation greater than 95% on room air. lg3 21:05 No provider procedures requiring assistance completed. vc1 21:17 IV discontinued, intact, bleeding controlled, No redness/swelling at site. Pressure vc1 dressing applied. Administered Medications: No medications were administered Medication: 18:03 VIS not applicable for this client. ap3 Outcome: 21:02 Discharge ordered by MD. ms3 21:17 Discharged to home ambulatory. vc1 21:17 Condition: good 21:17 Discharge instructions given to patient, Instructed on discharge instructions, follow up and referral plans. Demonstrated understanding of instructions, follow-up care. 21:18 Patient left the ED. vc1 Signatures: Gretta Leigh RN RN ap3 Meera Lambert RN RN lg3 Wolf Navarro DO DO ms3 Kay Robbins RN RN vc1 Maribell Parisi, PA-C PA-C sb4 Kalyn Jackson PAS PAS ts1 Gordy, Coral cg3 Corrections: (The following items were deleted from the chart) 18:02 18:01 Social history: Smoking status: ap3 ap3
--- NOTE | 2023-04-27 21:03 | EDPHYS ---
Physician Documentation [facility] Name: Morgan Castillo Age: 42 yrs Sex: Male : 1980 Arrival Date: 04/27/2023 Time: 17:38 Bed 6 Private MD: ED Physician Wolf Navarro HPI: 04/27 18:25 This 42 yrs old Male presents to ER via Ambulatory with complaints of Possible ms3 Kidney Stone. 18:25 42-year-old male with past medical history of kidney stones presents for left flank ms3 pain that he rates a 6/10 that began earlier today. Patient states last Monday he was transferred to [facility] in [facility] bilateral ureteral stents were placed. Patient states he has had continual bleeding since placement and is concerned about the bleeding. Patient denies fevers, chills, nausea, vomiting. Historical: - Allergies: 18:01 NKA; ap3 - PMHx: 18:01 Kidney stones; ap3 - Immunization history:: Adult Immunizations up to date. - Social history:: Smoking status: Patient denies any tobacco usage or history of. ROS: 18:25 Constitutional: Negative for fever, and chills. Neck: Negative for injury, pain, and ms3 swelling, Cardiovascular: Negative for chest pain, and palpitations. Respiratory: Negative for shortness of breath, cough, wheezing, and pleuritic chest pain, Abdomen/GI: Negative for abdominal pain, nausea, vomiting, diarrhea, and constipation. 18:25 Skin: Negative for injury, rash, and discoloration. 18:25 : Positive for hematuria. 18:25 All other systems are negative. Exam: 18:25 Constitutional: This is a well developed, well nourished patient who is awake, alert, ms3 and in no acute distress. Head/Face: Normocephalic, atraumatic. Neck: Trachea midline, no cervical lymphadenopathy. Supple, full range of motion without nuchal rigidity, or vertebral point tenderness. No Meningismus. Chest/axilla: Normal chest wall appearance and motion. Nontender with no deformity. Cardiovascular: Regular rate and rhythm with a normal S1 and S2. No gallops, murmurs, or rubs. Normal PMI, no JVD. No pulse deficits. Respiratory: Lungs have equal breath sounds bilaterally, clear to auscultation and percussion. No rales, rhonchi or wheezes noted. No increased work of breathing, no retractions or nasal flaring. Abdomen/GI: Soft, non-tender, with normal bowel sounds. No distension or tympany. No guarding or rebound. No evidence of tenderness throughout. Back: No spinal tenderness. No costovertebral tenderness. Full range of motion. Skin: Warm, dry with normal turgor. Normal color with no rashes, no lesions, and no evidence of cellulitis. MS/ Extremity: Pulses equal, no cyanosis. Neurovascular intact. Full, normal range of motion. Vital Signs: 17:58 BP 129 / 78; Pulse 79; Resp 18; Temp 98.4; Pulse Ox 99% ; ap3 17:58 Pain 6/10; ap3 20:00 BP 124 / 58; Pulse 73; Resp 18; Pulse Ox 99% ; cg3 20:15 BP 121 / 81; Pulse 63; Resp 18; Pulse Ox 99% ; vc1 21:04 BP 106 / 58; Pulse 64; Resp 17; Pulse Ox 98% ; vc1 17:58 Pain Scale: Adult ap3 MDM: 17:42 Patient medically screened. sb4 18:25 Differential diagnosis: nonspecific abdominal pain, UTI, Ureteral stents. ms3 21:01 Data reviewed: vital signs, nurses notes, lab test result(s), and as a result, I will ms3 discharge patient. Counseling: I had a detailed discussion with the patient and/or guardian regarding the historical points, exam findings, and any diagnostic results supporting the discharge/admit diagnosis, lab results, the need for outpatient follow up, to return to the emergency department if symptoms worsen or persist or if there are any questions or concerns that arise at home. Special discussion: I discussed with the patient/guardian in detail that at this point there is no indication for admission to the hospital. It is understood, however, that if the symptoms persist or worsen the patient needs to return immediately for re-evaluation. ED course: Discussed lab results with patient. Patient to follow-up with [facility] urology as scheduled. All questions were answered. Return precautions discussed include fevers, chills, worsening pain, worsening symptoms, or any other concerns. On reevaluation patient states his symptoms have improved, patient is alert and oriented x4, no apparent distress, nontoxic-appearing, ambulatory in emergency department. 04/27 18:07 Order name: CBC with Diff; Complete Time: 20:39 ms3 04/27 18:07 Order name: CMP; Complete Time: 20:39 ms3 04/27 18:07 Order name: Urinalysis w/ reflexes; Complete Time: 19:40 ms3 04/27 19:42 Order name: Urine Culture EDMS 04/27 18:07 Order name: IV Saline Lock; Complete Time: 19:58 ms3 04/27 18:07 Order name: Labs collected and sent; Complete Time: 19:58 ms3 Administered Medications: No medications were administered Disposition Summary: 04/27/23 21:02 Discharge Ordered Location: Home ms3 Condition: Stable ms3 Diagnosis - Left flank pain ms3 - Renal insufficiency ms3 Followup: ms3 - With: Private Physician - When: 2 - 3 days - Reason: Recheck today's complaints Discharge Instructions: - Discharge Summary Sheet ms3 - Flank Pain, Adult, [id number] ms3 Forms: - Medication Reconciliation Form ms3 - Thank You Letter ms3 - Antibiotic Education ms3 - Prescription Opioid Use ms3 - Patient Portal Instructions ms3 - Leadership Thank You Letter ms3 Signatures: Dispatcher [employer] Gretta Bateman RN RN ap3 Wolf Navarro DO DO ms3 Maribell Parisi PA-C PA-C sb4 Corrections: (The following items were deleted from the chart) 18:02 18:01 Social history: Smoking status: ap3 ap3
[2023-04-27 22:24] VITALS: TEMP 98.4
[2023-04-27 22:59] VITALS: BP 106/58; O2SAT 98
== END 2023-04-27 21:18 | disposition home or self-care (01) ==
LOC: ER 17:38
DX: N28.9 Disorder of kidney and ureter, unspecified (principal); R31.9 Hematuria, unspecified; Z87.442 Personal history of urinary calculi; Z96.0 Presence of urogenital implants
CPT/HCPCS: 36415; 80053; 81001; 85025; 87086; 87088; 99284